=== PATIENT | male | born 1960 | race Caucasian/White ===

== ENCOUNTER → 2016-11-22 | Outpatient (CLI) | payer OTHER ==
[2015-10-27 11:31] VITALS: BP 148/82
[~2016-11-22] MED LIST: CYCL5TAB PO; HYDR2TAB13 PO; OXYC-250 PO; OXYC-323 PO; SERT100T PO
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
== END | disposition home or self-care (01) ==
LOC: RAD 09:16
PROVIDERS: ATTEND Family Medicine
DX: M54.41 Lumbago with sciatica, right side (principal)
CPT/HCPCS: 72100

== ENCOUNTER → 2016-11-29 | Outpatient (CLI) | payer OTHER ==
[2015-10-27 11:31] VITALS: BP 148/82
--- NOTE | 2016-11-29 11:45 | RAD ---
PROCEDURE MRI lumbar spine without contrast HISTORY Chronic low back pain with worsening right foot heaviness and numbness, previous lumbar fusion TECHNIQUE Multiplanar, multi sequential non contrast MR imaging was performed of the lumbar spine. COMPARISON June 23, 2006 FINDINGS As seen previously, there has been posterolateral fusion at L5-S1 at which there are bilateral pedicle screws stabilizing vertical rods, also horizontal bar at this level. There is also interbody cage at L5-S1. Exam does not accurately evaluate integrity of hardware. There has been progression of moderate to severe degenerative disc disease at L2-3. Lumbar vertebral body stature is unchanged. There is inferior L1 Schmorl's node. There is negligible posterior subluxation L2 relative to L3, also negligible anterior spondylolisthesis at L4-5. Conus terminates normally T12-L1. There is no significant marrow edema. There is mild S-shaped scoliosis of the lumbar spine. L2-3: There is negligible disc osteophyte complex. Neural foramina and spinal canal are adequate. There is mild facet degenerative change. L3-4: There is negligible disc osteophyte complex, superimposed very shallow bulge/protrusion in the inferior left neural foramen and proximal left extraforaminal region with associated annular tear new since previous exam. Neural foramina are overall adequate. There is no significant displacement of the extraforaminal left L3 nerve root. Spinal canal is overall adequate. There is mild facet degenerative change and buckling of the ligamentum flavum. L4-5: There is mild facet hypertrophic change and minimal buckling of the ligamentum flavum. There is negligible bulge. Better seen on the sagittal T1 weighted images, there is signal abnormality extending above the intervertebral disc space in the right neural foramen and proximal extraforaminal region estimated at 0.6 cm cc by 0.7 cm AP by approximately 1.4 cm transverse. There is contact of the exiting right L4 nerve root in the right neural foramen and proximal extraforaminal region, overall moderate narrowing of the right neural foramina. Left neural foramen is adequate. There is increased mild to moderate left and mild right lateral recess stenosis. L5-S1: There again has been posterior decompression. Spinal canal and neural foramina are adequate. IMPRESSION 1. As seen previously, there has been posterolateral fusion and posterior decompression at L5-S1. 2. There is increased mild to moderate left and mild right lateral recess stenosis at L4-5, negligible anterior spondylolisthesis now at this level. There is also new signal abnormality in the anterior, inferior right L4-5 neural foramen and proximal extraforaminal region most compatible with extrusion which contacts the exiting right L4 nerve root. 3. There has been progression of degenerative disc disease at L2-3. Electronically signed by: Jae Ocampo MD (Nov 29, 2016 11:43:37)
== END | disposition home or self-care (01) ==
LOC: MRI 09:45
PROVIDERS: ATTEND Family Medicine
DX: M54.41 Lumbago with sciatica, right side (principal)
CPT/HCPCS: 72148

== ENCOUNTER → 2016-12-28 | Outpatient (CLI) | payer OTHER ==
[2015-10-27 11:31] VITALS: BP 148/82
[~2016-12-28] MED LIST changes: +DOCU-27 PO; +FAMO20TA5 PO; +HYDR-965 PO; +LISI10TA2 PO; +METH-38 PO
[2016-12-28 12:35] LABS: ALBUMIN 3.7 g/dL (3.4-5.0); ALBUMIN/GLOBULIN RATIO 1.1 (1.0-1.7); CALCIUM 9.1 mg/dL (8.5-10.1); CREATININE 1.1 mg/dL (0.7-1.3); TOTAL BILIRUBIN 0.5 mg/dL (0.2-1.0); TOTAL PROTEIN 7.1 g/dL (6.4-8.2)
[2016-12-28 12:49] LABS: BASO # 0.1 x10^3/uL (0.0-0.2); BASO % 1 % (0-3); EOS % 3 % (0-3); HEMATOCRIT 46.6 % (39.0-53.0); LYMPH % 26 % (24-48); MEAN CORPUSCULAR HEMOGLOBIN 33 pg (25-35); MEAN CORPUSCULAR HGB CONC 34 g/dL (31-37); MEAN CORPUSCULAR VOLUME 97 fL (79-100); MONO % 8 % (0-9); NEUT % 63 % (31-73); PLATELET COUNT 174 x10^3/uL (140-400); RED BLOOD COUNT 4.81 x10^6/uL (4.30-5.70); RED CELL DISTRIBUTION WIDTH 13.3 % (11.5-14.5); WHITE BLOOD COUNT 7.8 x10^3/uL (4.0-11.0)
--- NOTE | 2016-12-28 12:53 | EKG ---
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
--- NOTE | 2016-12-30 10:57 | HP ---
ADMIT DATE: 01/04/2017 DATE OF SURGERY: 01/04/2017. HISTORY OF PRESENT ILLNESS: The patient is a pleasant 56-year-old who is having difficulty with low back pain and pain which radiates into his posterior lateral thighs and legs. The right side is more involved than the left. He notes weakness of his right foot and says he stumbles and trips. He says that he walks any distances with flip-flops. The problem started about 4 weeks ago. He rates his pain as 5/10. Walking virtually any distance is associated with worsening of this problem. Many years ago, he underwent an instrumented lumbar fusion and decompression at L5-S1. He did well following fusion operation. PAST MEDICAL HISTORY: Arthritis, headaches, and shingles. PAST SURGICAL HISTORY: Colostomy in 1973, lumbar surgery in 2000, right knee 2001, and left shoulder surgery in 2015. FAMILY HISTORY: Noncontributory. SOCIAL HISTORY: Retired. . Denies substance abuse. Denies tobacco use. Drinks 1-2 alcoholic beverages per week. Drinks coffee, tea, and soda. ALLERGIES: No known drug allergies. CURRENT MEDICATIONS: Sertraline, lisinopril, and tizanidine. REVIEW OF SYSTEMS: A 12-point review of systems was obtained and is noncontributory except for that mentioned above. PHYSICAL EXAMINATION: NEUROSURGERY EXAMINATION: GENERAL APPEARANCE: Alert, pleasant, in no acute distress. HEAD: Normocephalic and atraumatic. SKIN: Warm and dry. MUSCULOSKELETAL: Lumbar paraspinal muscle bulk is normal, restricted range of motion of lumbar spine, [id number] tenderness of lower lumbar spine with palpation, normal range of motion of the lower extremities bilaterally. EXTREMITIES: No clubbing, cyanosis, or edema. NEUROLOGIC: Alert and oriented x 3, normal recent and remote memory, strength 5/5 in bilateral lower extremities, except for 4/5 right EHL and right foot dorsiflexion, sensory was intact to light touch in bilateral lower extremities except for decrease in the dorsum of his right foot, reflexes were present and symmetric in the lower extremities bilaterally, straight leg raising is positive on the right, negative straight leg raising on the left, antalgic gait. IMAGING REVIEWED: I reviewed a lumbar MRI scan. The L5-S1 instrumented fusion is well seen. At L4-L5 on the right, there is a superior lateral disk herniation which narrows the foramen and compresses the existing root. ASSESSMENT: 1. Intervertebral disk disorders with radiculopathy, lumbar region. 2. Footdrop, right foot. PLAN: The patient has a focal disk herniation above his previous fusion at L4-L5 on the right with significant right footdrop from which he is stumbling and falling. I have recommended lumbar microsurgery for this. In order to gain access to this region, I will have to remove the hardware at L5-S1 on the right. I discussed this with him. I explained surgery and the risks involved. He understands. He would like to go ahead. We will make the arrangements. JERRY PEDROZA MD DR: SCOTT/rashid JOB#: [id number] / [id number]
== END | disposition home or self-care (01) ==
LOC: SURGPAT 11:49
PROVIDERS: ATTEND Neurological Surgery
DX: M51.27 Other intervertebral disc displacement, lumbosacral region (principal)
CPT/HCPCS: 36415; 80053; 85027; 87641; 93005

== ENCOUNTER → 2017-01-04 | Day surgery (SDC) | payer OTHER ==
[~2017-01-04] VITALS: Ht 175.3 cm; Wt 79.8 kg
[~2017-01-04] MED LIST changes: +BACITRACIN 50,000 UNIT in IV NORMAL SALINE 1000ML BAG 1,000 ML IRR ONE; +BUPIVAC MPF-EPI 0.5%-1:200000 30 ML VIAL. ONE; +GELATIN SPONGE SIZE 100. ONE; +GLYCOPYRROLATE 1 MG/5 ML VIAL. ONE; +HYDROcodone/APAP 7.5/325MG 1 TAB TABLET ONE; +HYDROcodone/APAP 7.5/325MG 1 TAB TABLET PO PRN; +HYDROmorphone 2 MG/ML VIAL IV PRN; +IV RINGERS,LACTATED 1000ML 1,000 ML IV SCH; +KETOROLAC 60 MG/2 ML INJ FOR OR. ONE; +LIDOCAINE 1% 1 ML SYRINGE. ID PRN; +LIDOCAINE 2% 100 MG/5 ML SYRINGE. ONE; +MIDAZOLAM HCL/PF 2 MG/2 ML VIAL. ONE; +MINERAL OIL/PETROLATUM,WHITE OPHTH OINT 3.5GM TUBE. ONE; +MORPHINE SULFATE 2 MG/ML DISP.SYRIN. IV PRN; +NEOSTIGMINE METHYLSULFATE 5 MG/5 ML SYRINGE. ONE; +ONDANSETRON PF 4 MG/2 ML VIAL. IV PRN; +PHENYLEPHRINE in 0.9% NACL PF 1 MG/10 ML DISP.SYRIN. IV ONE; +PROCHLORPERAZINE 10 MG/2 ML VIAL. IV PRN; +PROPOFOL 20 ML IV ONE; +PROPOFOL 50 ML IV ONE; +REMIFENTANIL 2 MG VIAL. IV ONE; +ROCURONIUM 50 MG/5 ML VIAL. ONE; +SEVOFLURANE > 120 MINUTES. IH ONE; +THROMBIN TOPICAL 20,000 UNIT SPRAY.SYRN KIT TP ONE; +ePHEDrine PF IN SALINE 50 MG/5 ML DISP.SYRIN IV ONE; +fentaNYL PF VIAL 100 MCG/2 ML VIAL IV PRN; +fentaNYL PF VIAL 250 MCG/5 ML VIAL ONE
--- NOTE | 2017-01-04 07:47 | HP ---
ADMIT DATE: 01/04/2017 DATE OF SURGERY: 01/04/2017. HISTORY OF PRESENT ILLNESS: The patient is a pleasant 56-year-old who is having difficulty with low back pain and pain which radiates into his posterior lateral thighs and legs. The right side is more involved than the left. He notes weakness of his right foot and says he stumbles and trips. He says that he walks any distances with flip-flops. The problem started about 4 weeks ago. He rates his pain as 5/10. Walking virtually any distance is associated with worsening of this problem. Many years ago, he underwent an instrumented lumbar fusion and decompression at L5-S1. He did well following fusion operation. PAST MEDICAL HISTORY: Arthritis, headaches, and shingles. PAST SURGICAL HISTORY: Colostomy in 1973, lumbar surgery in 2000, right knee 2001, and left shoulder surgery in 2015. FAMILY HISTORY: Noncontributory. SOCIAL HISTORY: Retired. . Denies substance abuse. Denies tobacco use. Drinks 1-2 alcoholic beverages per week. Drinks coffee, tea, and soda. ALLERGIES: No known drug allergies. CURRENT MEDICATIONS: Sertraline, lisinopril, and tizanidine. REVIEW OF SYSTEMS: A 12-point review of systems was obtained and is noncontributory except for that mentioned above. PHYSICAL EXAMINATION: NEUROSURGERY EXAMINATION: GENERAL APPEARANCE: Alert, pleasant, in no acute distress. HEAD: Normocephalic and atraumatic. SKIN: Warm and dry. MUSCULOSKELETAL: Lumbar paraspinal muscle bulk is normal, restricted range of motion of lumbar spine, [id number] tenderness of lower lumbar spine with palpation, normal range of motion of the lower extremities bilaterally. EXTREMITIES: No clubbing, cyanosis, or edema. NEUROLOGIC: Alert and oriented x 3, normal recent and remote memory, strength 5/5 in bilateral lower extremities, except for 4/5 right EHL and right foot dorsiflexion, sensory was intact to light touch in bilateral lower extremities except for decrease in the dorsum of his right foot, reflexes were present and symmetric in the lower extremities bilaterally, straight leg raising is positive on the right, negative straight leg raising on the left, antalgic gait. IMAGING REVIEWED: I reviewed a lumbar MRI scan. The L5-S1 instrumented fusion is well seen. At L4-L5 on the right, there is a superior lateral disk herniation which narrows the foramen and compresses the existing root. ASSESSMENT: 1. Intervertebral disk disorders with radiculopathy, lumbar region. 2. Footdrop, right foot. PLAN: The patient has a focal disk herniation above his previous fusion at L4-L5 on the right with significant right footdrop from which he is stumbling and falling. I have recommended lumbar microsurgery for this. In order to gain access to this region, I will have to remove the hardware at L5-S1 on the right. I discussed this with him. I explained surgery and the risks involved. He understands. He would like to go ahead. We will make the arrangements. JERRY PEDROZA MD DR: SCOTT/rashid JOB#: [id number] / [id number]
[2017-01-04] MEDS: fentaNYL PF VIAL 100 MCG/2 ML VIAL IV PRN ×2 (11:42→12:10)
--- NOTE | 2017-01-04 11:55 | DISCH ---
DISCHARGE INSTRUCTIONS Condition on Discharge Condition on Discharge: Stable Activity After Discharge Activity Instructions for Disc: Activity as tolerated, Avoid exertion Other activity instructions: no driving for a week Bathing Instructions: Shower-keep dressing dry Lifting Instructions after Dis: No heavy lifting, No pulling or pushing, Do not lift >10 pounds Diet after Discharge Additional Diet Restrictions: resume home diet Wound Incision Care Wound/Incision Care: Ice to area for comfort Other wound/incision instructi: may remove dressing in 48 hrs if dry then may shower- no soaking Contacting the after DC Call your doctor for: Concerns you may have Follow-Up Follow up with: Dr. Pedroza's nurse [phone] JERRY PEDROZA MD January 04, 2017 11:55
[2017-01-04 13:20] VITALS: BP 124/70
--- NOTE | 2017-01-04 16:54 | OP ---
DATE OF SURGERY: 01/04/2017 PREOPERATIVE DIAGNOSES: Herniated lumbar disk, right L4-L5 with right lumbar radiculopathy. POSTOPERATIVE DIAGNOSES: Herniated lumbar disk, right L4-L5 with right lumbar radiculopathy. OPERATIONS PERFORMED: Hemilaminotomy and microdiskectomy, right L4-L5. The operation was done with EMG monitoring, fluoroscopy, and microscopic dissection. CYCLE ANALYST: Bryan Cantu M.D., assisted with the surgery, assisted with the exposure, and microdiskectomy as well as the closure. OPERATIVE INDICATIONS: The patient is a very pleasant 56-year-old man who developed intractable lower back pain along with pain which radiated into his right buttock and posterolateral thigh. He failed conservative measures and imaging studies. He has had a previous fusion at L5-S1 and above this on the right side, there was a small superior disk fragment plus lateral recess stenosis and I recommended lumbar microsurgery. I spoke with him about the surgery and the risks, technique and the expected postoperative course. He understood and wished to go ahead. DESCRIPTION OF PROCEDURE: Following general endotracheal anesthesia, the patient was positioned prone on the Acromed spine board. His lumbar region was prepped and draped in the standard fashion. EARNEST hose and AV impulse boots were applied for DVT prophylaxis. A microscope was draped. Fluoroscopy was draped and brought into field. Monitoring was established. Ancef 2 gram was given less than 1 hour prior to the initiation of the surgery. Using fluoroscopic guidance, incision was made over the L4-L5 interspace. I dissected down through the skin and subcutaneous tissue and reflected the paraspinal muscles to the right and dissected the superior aspect of the previous hardware and was quite concerned that I would have to remove hardware in order to gain access to L4-L5 on the right. I was able to place my retractors satisfactorily without removing the hardware and I brought in the microscope during this time and then using the high speed air drill, I burred down a generous hemilaminotomy. I trimmed away thickened ligamentum flavum, went superiorly and laterally and I performed a partial foraminotomy and I exposed area very well. The nerve was compressed from hypertrophic bone and ligament posterolaterally and bulging disk with some superior bulge and fragments beneath the root. I gently retracted the root medially and incised the ligament and the annulus and I teased back and removed disk material and then, performed a diskectomy with pituitary rongeurs. As I worked, the region became very well decompressed. I irrigated with antibiotic solution and obtained hemostasis during this time along with the bone wax at the end of the bony interspace for any bone bleeding. I explored carefully, the root was very free. initiation of the operation, there was significant tension across the root. I did perform partial foraminotomy. I gently removed the retractor and let the muscle fall back and then obtained hemostasis in the muscle and irrigated again copiously. I closed the fascia with absorbable sutures. The subcutaneous tissue was well with absorbable suture and skin was closed with 4-0 subcuticular stitch. Operation went very well. I was quite pleased with the surgery. JERRY PEDROZA MD DR: SCOTT/rashid JOB#: [id number] / [id number]
--- NOTE | 2017-01-06 12:31 | PATHOLOGY ---
PATHOLOGY REPORT * * * * * * * * FINAL DIAGNOSIS: "Lumbar disc and decompression", removal: - Portions of fibrocartilage with degenerative changes. - Fragments of unremarkable bone. REPORT ELECTRONICALLY SIGNED BY: Lucio Portillo M.D. DATE/TIME: 01/06/2017 12:30 * * * * * * * * GROSS PATHOLOGY: Received in formalin labeled "Andres Moran, lumbar disc and decompression," are several pieces of glistening, fibrous tissue measuring 5.9 x 5.6 x 1.3 cm in aggregate dimensions admixed with possible bone. The tissue is submitted representatively in cassette A1 following decalcification. (KAH; 01/05/2017) INITIAL CPT CODE(S): A; 50869, 08993 Professional services performed by [facility] [address] Technical services performed by [facility] at [address] [place] [address], [place] [address]. SPECIMEN(S) RECEIVED: A.Lumbar disc and decompression CLINICAL HISTORY: Lumbar herniated disc, foot drop PATIENT: ANDRES MORAN Etelvina /AGE: 2 1960 (Age: 56) PATIENT #: [id number] ALT CASE #: SPECIMEN COLLECTION DATE: 01/04/2017 SPECIMEN RECEIVED DATE: 01/04/2017 [facility] - [address] [place] [address] - PHONE: [phone] * * * END OF REPORT * * *
== END | disposition home or self-care (01) ==
LOC: SURG 07:01
PROVIDERS: ATTEND Neurological Surgery
DX: M51.16 Intervertebral disc disorders with radiculopathy, lumbar region (principal); I10 Essential (primary) hypertension; K21.9 Gastro-esophageal reflux disease without esophagitis; F41.9 Anxiety disorder, unspecified; Z72.89 Other problems related to lifestyle; Z86.69 Personal history of other diseases of the nervous system and sense organs
CPT/HCPCS: 63030; 76000; 97162; G8978; G8979; G8980; J0690; J1885; J2250; J2370; J2704; J2710; J3010; J3490; J7030; J7120; 88304; 88311

== ENCOUNTER → 2017-08-03 | Outpatient (CLI) | payer OTHER ==
[2017-01-04 13:20] VITALS: BP 124/70
[~2017-08-03] MED LIST changes: -BACITRACIN 50,000 UNIT in IV NORMAL SALINE 1000ML BAG 1,000 ML IRR ONE; -BUPIVAC MPF-EPI 0.5%-1:200000 30 ML VIAL. ONE; +DOCU-109 PO; -DOCU-27 PO; -GELATIN SPONGE SIZE 100. ONE; -GLYCOPYRROLATE 1 MG/5 ML VIAL. ONE; -HYDR2TAB13 PO; +HYDR2TAB31 PO; -HYDROcodone/APAP 7.5/325MG 1 TAB TABLET ONE; -HYDROcodone/APAP 7.5/325MG 1 TAB TABLET PO PRN; -HYDROmorphone 2 MG/ML VIAL IV PRN; -IV RINGERS,LACTATED 1000ML 1,000 ML IV SCH; -KETOROLAC 60 MG/2 ML INJ FOR OR. ONE; -LIDOCAINE 1% 1 ML SYRINGE. ID PRN; -LIDOCAINE 2% 100 MG/5 ML SYRINGE. ONE; -MIDAZOLAM HCL/PF 2 MG/2 ML VIAL. ONE; -MINERAL OIL/PETROLATUM,WHITE OPHTH OINT 3.5GM TUBE. ONE; -MORPHINE SULFATE 2 MG/ML DISP.SYRIN. IV PRN; -NEOSTIGMINE METHYLSULFATE 5 MG/5 ML SYRINGE. ONE; -ONDANSETRON PF 4 MG/2 ML VIAL. IV PRN; -OXYC-250 PO; +OXYC-328 PO; -PHENYLEPHRINE in 0.9% NACL PF 1 MG/10 ML DISP.SYRIN. IV ONE; -PROCHLORPERAZINE 10 MG/2 ML VIAL. IV PRN; -PROPOFOL 20 ML IV ONE; -PROPOFOL 50 ML IV ONE; -REMIFENTANIL 2 MG VIAL. IV ONE; -ROCURONIUM 50 MG/5 ML VIAL. ONE; -SEVOFLURANE > 120 MINUTES. IH ONE; -THROMBIN TOPICAL 20,000 UNIT SPRAY.SYRN KIT TP ONE; -ePHEDrine PF IN SALINE 50 MG/5 ML DISP.SYRIN IV ONE; -fentaNYL PF VIAL 100 MCG/2 ML VIAL IV PRN; -fentaNYL PF VIAL 250 MCG/5 ML VIAL ONE
--- NOTE | 2017-08-03 15:23 | RAD ---
Five-view C-spine History: Chronic neck pain AP lateral open mouth and bilateral oblique views were obtained There is straightening of the normal cervical lordosis. There is mild degenerative retrolisthesis of C4 on C5 and minimal degenerative anterolisthesis of C3 on C4. There is loss of intervertebral disc height at C4-C5 and C6-C7 with marginal spurring of the endplates. There is moderate narrowing of the C3-C4 and C6-C7 neural foramen on the left and marked narrowing of the C4-C5 neural foramen on the left.. Impression: 1. Straightening of the normal cervical lordosis could be secondary to muscle spasm or could be chronic. 2. Degenerative changes with neural foraminal stenosis on the left.
== END | disposition home or self-care (01) ==
LOC: RAD 10:17
PROVIDERS: ATTEND Physician Assistant
DX: M48.02 Spinal stenosis, cervical region (principal)
CPT/HCPCS: 72050

== ENCOUNTER → 2017-08-22 | Outpatient (CLI) | payer OTHER ==
[2017-01-04 13:20] VITALS: BP 124/70
--- NOTE | 2017-08-22 09:55 | RAD ---
INDICATION: Neck and upper back pain with bilateral arm pain. TECHNIQUE: Sagittal T1, sagittal T2, sagittal STIR, axial T2, and axial T2 gradient sequences are provided. No comparison is available. FINDINGS: There is 3 mm of retrolisthesis at C4-C5. There is otherwise no malalignment. There is no worrisome marrow lesion. There is no marrow edema. There is no cord signal abnormality. The cervicomedullary junction is unremarkable. Degenerative findings by individual level are as follows: C2-C3: There is minimal uncinate process spurring and facet hypertrophy, without canal or foraminal compromise. C3-C4: There is uncinate process spurring and facet hypertrophy. There is mild left foraminal narrowing. C4-C5: In addition to the retrolisthesis there is a disc osteophyte complex and uncinate process spurring. There is buckling of ligamentum flavum. There is effacement of the ventral CSF column. Osteophyte complex contacts the cord. There is no canal stenosis, midline AP diameter of the thecal sac is still 11-12 mm. There is foraminal narrowing bilaterally, likely moderate on the left and [id number] on the right. C5-C6: There is a disc osteophyte complex and facet hypertrophy with mild bilateral foraminal narrowing. Midline AP diameter of the thecal sac is 11 mm. C6-C7: There is a disc osteophyte complex and uncinate process spurring. There is moderate left and mild right foraminal narrowing. Midline AP diameter of the thecal sac is still 11 mm. C7-T1: There is facet hypertrophy. There may be a right paracentral/foraminal herniation. There is no high-grade canal or foraminal compromise. IMPRESSION: Degenerative changes in the cervical spine are greatest at C4-C5. Electronically signed by: Evelio Culp MD (08/22/2017 9:52 AM) [email or web address]
--- NOTE | 2017-08-22 10:06 | RAD ---
INDICATION: Upper back pain and bilateral arm pain. TECHNIQUE: Sagittal T1, sagittal T2, sagittal STIR, axial T1, and axial T2 sequences are provided. No comparison is available. FINDINGS: There is no malalignment. There is no marrow edema. There is no worrisome marrow lesion. There is no cord signal abnormality. Degenerative findings by individual level are as follows: T3-T4: There is a disc osteophyte complex without canal or foraminal compromise. T4-T5: There is a left paracentral protrusion or spur without canal or foraminal compromise. T5-T6: There is a left paracentral protrusion or spur without canal or foraminal compromise. T9-T10: There is facet hypertrophy without canal or foraminal compromise. T10-T11: There is a minimal disc bulge and mild facet hypertrophy without canal stenosis. There is minimal foraminal narrowing. T11-T12: Disc bulge and facet hypertrophy are noted without canal or foraminal compromise. IMPRESSION: 1. Negative for compression fracture. 2. Mild degenerative disc disease and facet hypertrophy throughout the thoracic spine. No high-grade canal stenosis is apparent. Minimal foraminal narrowing is noted at T10-T11. Electronically signed by: Evelio Culp MD (08/22/2017 10:02 AM) [email or web address]
== END | disposition home or self-care (01) ==
LOC: MRI 10:15
PROVIDERS: ATTEND Physician Assistant
DX: M47.892 Other spondylosis, cervical region (principal); M51.14 Intervertebral disc disorders with radiculopathy, thoracic region
CPT/HCPCS: 72141; 72146

== ENCOUNTER → 2017-09-04 | Outpatient (CLI) | payer OTHER ==
[~2017-09-04] MED LIST changes: -CYCL5TAB PO; -DOCU-109 PO; -FAMO20TA5 PO; -HYDR-965 PO; -HYDR2TAB31 PO; +IOHEXOL 180 MG/ML 10 ML VIAL.; -LISI10TA2 PO; -METH-38 PO; -OXYC-323 PO; -OXYC-328 PO; -SERT100T PO; +methylPREDNISolone ACETATE 40 MG/ML VIAL.; +methylPREDNISolone ACETATE 80 MG/ML VIAL.
== END | disposition home or self-care (01) ==
LOC: PNCL 12:56
DX: M50.321 Other cervical disc degeneration at C4-C5 level (principal); M54.12 Radiculopathy, cervical region; I10 Essential (primary) hypertension; M19.90 Unspecified osteoarthritis, unspecified site; K21.9 Gastro-esophageal reflux disease without esophagitis; Z98.890 Other specified postprocedural states; Z79.899 Other long term (current) drug therapy
CPT/HCPCS: 62321; J1030; J1040

== ENCOUNTER → 2017-09-18 | Outpatient (CLI) | payer OTHER | END | disposition home or self-care (01) | LOC: PNCL 12:54 | DX: M50.123 Cervical disc disorder at C6-C7 level with radiculopathy (principal); I10 Essential (primary) hypertension; K21.9 Gastro-esophageal reflux disease without esophagitis; F41.9 Anxiety disorder, unspecified; F17.200 Nicotine dependence, unspecified, uncomplicated; Z86.69 Personal history of other diseases of the nervous system and sense organs; Z72.89 Other problems related to lifestyle; Z87.39 Personal history of other diseases of the musculoskeletal system and connective tissue | CPT/HCPCS: 62321; J1030; J1040 ==

== ENCOUNTER → 2017-10-09 | Outpatient (CLI) | payer OTHER | END | disposition home or self-care (01) | LOC: PNCL 12:51 | DX: M50.123 Cervical disc disorder at C6-C7 level with radiculopathy (principal); I10 Essential (primary) hypertension; F41.9 Anxiety disorder, unspecified; F17.200 Nicotine dependence, unspecified, uncomplicated; Z87.39 Personal history of other diseases of the musculoskeletal system and connective tissue; Z86.69 Personal history of other diseases of the nervous system and sense organs; Z72.89 Other problems related to lifestyle | CPT/HCPCS: 62321; J1030; J1040; Q9965 ==

== ENCOUNTER → 2017-10-27 | Outpatient (CLI) | payer OTHER ==
[2017-10-27 13:08] LABS: ADD MAN DIFF? NO
[2017-10-27 13:11] LABS: BASO # 0.1 x10^3/uL (0.0-0.2); BASO % 1 % (0-3); EOS # 0.1 x10^3/uL (0.0-0.7); EOS % 1 % (0-3); HEMATOCRIT 44.4 % (39.0-53.0); HEMOGLOBIN 15.6 g/dL (13.0-17.5); LYMPH # 2.1 x10^3/uL (1.0-4.8); LYMPH % 27 % (24-48); MEAN CORPUSCULAR HEMOGLOBIN 35 pg (25-35); MEAN CORPUSCULAR HGB CONC 35 g/dL (31-37); MEAN CORPUSCULAR VOLUME 99 fL (79-100); MONO # 0.7 x10^3/uL (0.0-1.1); MONO % 9 % (0-9); NEUT # 4.6 x10^3uL (1.8-7.7); NEUT % 62 % (31-73); PLATELET COUNT 172 x10^3/uL (140-400); RED BLOOD COUNT 4.51 x10^6/uL (4.30-5.70); RED CELL DISTRIBUTION WIDTH 13.2 % (11.5-14.5); WHITE BLOOD COUNT 7.5 x10^3/uL (4.0-11.0)
[2017-10-27 13:29] LABS: ALBUMIN 3.7 g/dL (3.4-5.0); ALBUMIN/GLOBULIN RATIO 1.2 (1.0-1.7); ALK PHOS 90 U/L (46-116); ALT (SGPT) 38 U/L (16-63); ANION GAP 8 (6-14); AST (SGOT) 22 U/L (15-37); BLOOD UREA NITROGEN 12 mg/dL (8-26); BUN/CREATININE RATIO 12 (6-20); CALCIUM 9.1 mg/dL (8.5-10.1); CARBON DIOXIDE 27 mmol/L (21-32); CHLORIDE 105 mmol/L (98-107); GFR 76.7; GLUCOSE 131 mg/dL (70-99); SODIUM 140 mmol/L (136-145); TOTAL BILIRUBIN 0.8 mg/dL (0.2-1.0); TOTAL PROTEIN 6.9 g/dL (6.4-8.2)
[2017-10-27 22:16] LABS: MRSA BY PCR Negative (Negative)
== END | disposition home or self-care (01) ==
LOC: SURGPAT 12:09
DX: Z01.818 Encounter for other preprocedural examination (principal); M48.02 Spinal stenosis, cervical region; M50.121 Cervical disc disorder at C4-C5 level with radiculopathy
CPT/HCPCS: 36415; 80053; 85025; 87641

== ENCOUNTER 2017-11-03 07:14 | Observation (INO) | payer OTHER ==
[~2017-11-03 07:14] MED LIST changes: +DEXAMETHASONE SOD PHOS 20 MG/5 ML VIAL.; +HYDROmorphone 2 MG/ML VIAL IV; -IOHEXOL 180 MG/ML 10 ML VIAL.; +LIDOCAINE 1% PF 2 ML VIAL. ID; +LIDOCAINE 2% PF Vial for OR 5 ML VIAL.; +MORPHINE SULFATE 2 MG/ML DISP.SYRIN. IV; +ONDANSETRON PF 4 MG/2 ML VIAL.; +ONDANSETRON PF 4 MG/2 ML VIAL. IV; +PROPOFOL 20 ML IV; +ROCURONIUM 50 MG/5 ML VIAL.; +fentaNYL PF VIAL 100 MCG/2 ML VIAL IV; -methylPREDNISolone ACETATE 40 MG/ML VIAL.; -methylPREDNISolone ACETATE 80 MG/ML VIAL.
[2017-11-03] MEDS: IV RINGERS,LACTATED 1000ML 1,000 ML IV ×2 (07:43→11:39)
[2017-11-03] MEDS ORDERED: PHENYLEPHRINE 10 MG/ML VIAL. (08:10)
[2017-11-03] MEDS ORDERED: REMIFENTANIL 2 MG VIAL. IV (08:10)
[2017-11-03] MEDS ORDERED: PROPOFOL 50 ML IV ×2 (08:11→09:37)
[2017-11-03] MEDS ORDERED: fentaNYL PF VIAL 100 MCG/2 ML VIAL (08:11)
[2017-11-03] MEDS ORDERED: GLYCOPYRROLATE 1 MG/5 ML VIAL. (09:12)
[2017-11-03] MEDS ORDERED: PROPOFOL 20 ML IV (09:33)
[2017-11-03] MEDS ORDERED: NEOSTIGMINE 10 MG/10 ML VIAL. (09:34)
[2017-11-03] MEDS: BUPIVAC MPF-EPI 0.5%-1:200000 30 ML VIAL. INJ (09:42)
[2017-11-03] MEDS: THROMBIN TOPICAL 20,000 UNIT SPRAY.SYRN KIT TP (09:42)
[2017-11-03] MEDS: GELATIN SPONGE SIZE 100. (09:42)
[2017-11-03] MEDS: BACITRACIN 50,000 UNIT in IV NORMAL SALINE 1000ML BAG 1,000 ML IRR (09:42)
[2017-11-03] MEDS ORDERED: SEVOFLURANE > 120 MINUTES. IH (11:07)
[2017-11-03] MEDS ORDERED: MAG HYDROX/ALUMINUM HYD/SIMETH 30 ML ORAL.SUSP PO (11:15)
[2017-11-03] MEDS ORDERED: diphenhydrAMINE HCL 25 MG CAPSULE PO (11:15)
[2017-11-03] MEDS ORDERED: MAGNESIUM HYDROXIDE 2,400 MG/30 ML ORAL.SUSP. PO (11:15)
[2017-11-03] MEDS ORDERED: ZOLPIDEM 5 MG TABLET. PO (11:15)
[2017-11-03] MEDS ORDERED: CALCIUM CARBONATE 500 MG TAB.CHEW PO (11:15)
[2017-11-03] MEDS ORDERED: fentaNYL PF VIAL 100 MCG/2 ML VIAL IV ×2 (11:15)
[2017-11-03] MEDS ORDERED: ONDANSETRON PF 4 MG/2 ML VIAL. IV (11:15)
[2017-11-03] MEDS ORDERED: ACETAMINOPHEN 325 MG TABLET. PO (11:15)
[2017-11-03] MEDS ORDERED: 0.9 % SODIUM CHLORIDE 10 ML DISP.SYRIN. IV (11:15)
[2017-11-03] MEDS ORDERED: diphenhydrAMINE 50 MG/ML VIAL IV (11:15)
[2017-11-03] MEDS: fentaNYL PF VIAL 100 MCG/2 ML VIAL IV ×4 (11:40→12:36)
[2017-11-03] MEDS: PROCHLORPERAZINE 10 MG/2 ML VIAL. IV ×2 (11:40→12:04)
[2017-11-03] MEDS: POTASSIUM CL 20MEQ D5-0.45NACL 1,000 ML IV (12:00)
[2017-11-03] MEDS ORDERED: ceFAZolin 2GM PREMIX 2 GM/50 ML BAG IV (12:00)
[2017-11-03] MEDS ORDERED: ceFAZolin SODIUM 1 GM in IV DEXTROSE 5% 50 ML IV (14:00)
[2017-11-03] MEDS: METHOCARBAMOL 750 MG TABLET PO ×2 (14:23→20:54)
[2017-11-03] MEDS: ceFAZolin SODIUM IV Push 1 GM VIAL. IVP (17:02)
[2017-11-03] MEDS: HYDROcodone/APAP 7.5/325MG 1 TAB TABLET PO (18:39)
[2017-11-03] MEDS: DOCUSATE SODIUM 100 MG CAPSULE. PO (20:55)
[2017-11-04] MEDS: ceFAZolin SODIUM IV Push 1 GM VIAL. IVP ×2 (00:25→08:37)
[2017-11-04] MEDS: HYDROcodone/APAP 7.5/325MG 1 TAB TABLET PO ×2 (06:07→11:50)
[2017-11-04] MEDS: CITALOPRAM 20 MG TABLET. PO (08:37)
[2017-11-04] MEDS: DOCUSATE SODIUM 100 MG CAPSULE. PO (08:37)
[2017-11-04] MEDS: METHOCARBAMOL 750 MG TABLET PO ×2 (08:37→12:54)
[2017-11-04] MEDS: FAMOTIDINE 20 MG TABLET. PO (08:37)
[2017-11-04] MEDS: LOSARTAN POTASSIUM 50 MG TABLET. PO (08:40)
== END 2017-11-04 14:10 | disposition home or self-care (01) ==
LOC: SURG 07:14 → 4 NORTH 11:13
DX: M50.121 Cervical disc disorder at C4-C5 level with radiculopathy (principal); M48.02 Spinal stenosis, cervical region; M19.90 Unspecified osteoarthritis, unspecified site; G43.909 Migraine, unspecified, not intractable, without status migrainosus; Z93.3 Colostomy status
CPT/HCPCS: 20931; 76000; 88304; 96374; 96376; 97162-GP; 97530-GP; C1713; G0378; G0379; G8979-CI-GP; G8980-CI-GP; J0690; J0780; J1100; J2405; J2704; J2710; J3010; J3490; J7030; J7120

== ENCOUNTER → 2018-02-05 | Outpatient (CLI) | payer OTHER | END | disposition home or self-care (01) | LOC: RAD 08:42 | DX: M48.02 Spinal stenosis, cervical region (principal); M12.88 Other specific arthropathies, not elsewhere classified, other specified site; Z98.890 Other specified postprocedural states | CPT/HCPCS: 72040 ==

== ENCOUNTER → 2018-03-28 | Outpatient (CLI) | payer OTHER ==
[2018-03-28] MEDS: GADOBUTROL 7.5 MMOL/7.5 ML VIAL IV (15:30)
== END | disposition home or self-care (01) ==
LOC: KCIC MRI 14:12
DX: M48.061 Spinal stenosis, lumbar region without neurogenic claudication (principal); M51.16 Intervertebral disc disorders with radiculopathy, lumbar region; M12.88 Other specific arthropathies, not elsewhere classified, other specified site; M41.86 Other forms of scoliosis, lumbar region; M43.27 Fusion of spine, lumbosacral region; I10 Essential (primary) hypertension; Z87.891 Personal history of nicotine dependence
CPT/HCPCS: 72158; A9585

== ENCOUNTER → 2018-04-16 | Outpatient (CLI) | payer OTHER ==
[2017-11-04 11:00] VITALS: BP 111/50
[~2018-04-16] MED LIST changes: +ACET500T68 PO; +CYCL5TAB PO; -DEXAMETHASONE SOD PHOS 20 MG/5 ML VIAL.; +DOCU-109 PO; +ESCITALOPRAM OX10 MG PO; +FAMO-63 PO; +FAMO20TA5 PO; +FLUO10CA13 PO; +HYDR-2762 PO; +HYDR-965 PO; +HYDR2TAB31 PO; -HYDROmorphone 2 MG/ML VIAL IV; -LIDOCAINE 1% PF 2 ML VIAL. ID; -LIDOCAINE 2% PF Vial for OR 5 ML VIAL.; +LISI10TA2 PO; +LOSA50TA6 PO; +METH-37 PO; +METH-38 PO; +METH750T2 PO; -MORPHINE SULFATE 2 MG/ML DISP.SYRIN. IV; +NAPR220C4 PO; -ONDANSETRON PF 4 MG/2 ML VIAL.; -ONDANSETRON PF 4 MG/2 ML VIAL. IV; +OXYC-323 PO; +OXYC-328 PO; +OXYC1TAB7 PO; -PROPOFOL 20 ML IV; -ROCURONIUM 50 MG/5 ML VIAL.; +SERT100T PO; -fentaNYL PF VIAL 100 MCG/2 ML VIAL IV
--- NOTE | 2018-04-16 10:59 | EKG ---
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
[2018-04-16 11:10] LABS: BASO # 0.1 x10^3/uL (0.0-0.2); BASO % 1 % (0-3); EOS # 0.2 x10^3/uL (0.0-0.7); EOS % 3 % (0-3); HEMATOCRIT 44.9 % (39.0-53.0); HEMOGLOBIN 15.9 g/dL (13.0-17.5); LYMPH # 2.4 x10^3/uL (1.0-4.8); LYMPH % 32 % (24-48); MEAN CORPUSCULAR HEMOGLOBIN 35 pg (25-35); MEAN CORPUSCULAR HGB CONC 35 g/dL (31-37); MEAN CORPUSCULAR VOLUME 97 fL (79-100); MONO # 0.6 x10^3/uL (0.0-1.1); MONO % 9 % (0-9); NEUT # 4.1 x10^3uL (1.8-7.7); NEUT % 55 % (31-73); PLATELET COUNT 173 x10^3/uL (140-400); RED BLOOD COUNT 4.61 x10^6/uL (4.30-5.70); RED CELL DISTRIBUTION WIDTH 12.8 % (11.5-14.5); WHITE BLOOD COUNT 7.4 x10^3/uL (4.0-11.0)
[2018-04-16 11:14] LABS: PROTHROMBIN TIME PATIENT 12.6 SEC (11.7-14.0)
[2018-04-16 11:19] LABS: ALBUMIN 3.8 g/dL (3.4-5.0); ALBUMIN/GLOBULIN RATIO 1.2 (1.0-1.7); CALCIUM 9.2 mg/dL (8.5-10.1); CREATININE 1.1 mg/dL (0.7-1.3); GFR 68.8; POTASSIUM 4.2 mmol/L (3.5-5.1); TOTAL BILIRUBIN 0.8 mg/dL (0.2-1.0); TOTAL PROTEIN 6.9 g/dL (6.4-8.2)
== END | disposition home or self-care (01) ==
LOC: SURGPAT 10:05
PROVIDERS: ATTEND Neurological Surgery
DX: Z01.818 Encounter for other preprocedural examination (principal); M51.16 Intervertebral disc disorders with radiculopathy, lumbar region; I10 Essential (primary) hypertension; Z87.891 Personal history of nicotine dependence; Z87.39 Personal history of other diseases of the musculoskeletal system and connective tissue; Z79.899 Other long term (current) drug therapy; Z98.1 Arthrodesis status
CPT/HCPCS: 36415; 80053; 85025; 85610; 85730; 87641; 93005

== ENCOUNTER 2018-04-19 07:52 | Observation (INO) | payer OTHER ==
--- NOTE | 2018-04-18 12:58 | PREOP HP ---
DATE OF SERVICE: 04/19/2018 HISTORY OF PRESENT ILLNESS: The patient was seen today in the office. In 2000, he underwent an instrumented lumbar fusion and decompression at L5-S1 and did well from that. In 2016, he had problems with herniated disc at L4-L5 on the right and underwent lumbar microsurgery at that level. He did well from that operation. He said that even though he improved with regard to his severe leg pain, he does have some residual back pain over the last few months and the right leg pain has returned and become quite severe. He notes pain in the right buttock and hip, which radiates into the right lateral and anterior lateral thigh, stopping normally at the knee. His knee is painful for him also. Standing and walking increases pain. He says his pain is constant and he has difficulty finding relief. He is taking [place] and Robaxin. He developed problems with cervical radiculopathy, stenosis and in 10/2016 underwent an anterior cervical discectomy and fusion at C4-C5. He did well from that operation with resolution of his arm pain. He says that he is having problems with increased headache. He feels as though his headaches are disabling due to the stress incurred by the pain in his lower back and right leg. He rates his pain at rest as a 5/10. He has recently finished a Medrol Dosepak and said it did give him some temporary help. He underwent a new lumbar MRI scan on 03/28/2018. PAST MEDICAL HISTORY: Arthritis, headaches with migraines, shingles. PAST SURGICAL HISTORY: Colostomy in 1973, lumbar surgery in 2000, right knee 2001, left shoulder surgery 2017, lumbar micro disk decompression L4-L5 on the right with removal of hardware at L5-S1 in 12/2016, and ACDF at C4-C5 in 10/2017. SOCIAL HISTORY: Retired. . Denies substance abuse. Denies tobacco use. Drinks 1-2 alcoholic drinks per week. Drinks coffee, tea and soda. ALLERGIES: No known drug allergies. CURRENT MEDICATIONS: Citalopram, losartan, Tylenol and Aleve. REVIEW OF SYSTEMS: A 12-point review of systems was obtained and is noncontributory except for that mentioned above. PHYSICAL EXAMINATION: NEUROSURGERY EXAMINATION: GENERAL APPEARANCE: Alert, pleasant, no acute distress. HEAD: Normocephalic and atraumatic. SKIN: Warm and dry. Well-healed lumbar incision. MUSCULOSKELETAL: Lumbar paraspinal muscle bulk is normal, restricted range of motion of the lumbar spine, moderately severe tenderness over the right lower lumbar spine with palpation, normal range of motion of the lower extremities bilaterally. EXTREMITIES: No clubbing, cyanosis or edema. NEUROLOGIC: Alert and oriented x 3, normal recent and remote memory. Strength 5/5 in bilateral lower extremities, sensory is intact to light touch in the lower extremities bilaterally except for a diminution in light touch involving the lateral right thigh, reflexes were present and symmetric in bilateral lower extremities, positive straight leg raising on the right at 30 degrees with back, right hip and right lateral thigh pain relieved by Lasegue maneuver, negative straight leg raising on the left. IMAGING: I reviewed his recent lumbar MRI scan. The instrumented fusion of L5-S1 is well seen. There are postoperative changes seen at L4-L5 on the right. There is a moderately large recurrent disc in the right lateral recess at L4-L5 compressing the right L5 root. ASSESSMENT/ PLAN: He has significant lumbar radiculopathy, which is disabling for him. On imaging studies there was a large recurrent disc at L4-L5 on the right with nerve root compression. This is a previously operated level from 2017. At this point, my recommendation is that he undergo further surgery to remove the herniated disc recurrence. Because this is a recurrent herniation above an instrumented fusion, he will require removal of instrumentation at L5-S1 in order to gain access to L4-L5. Following his wide exposure and discectomy at this level, I would place hardware from L4 to the sacrum and combine this with an anterior discectomy and fusion. I discussed this with him in detail. I spoke about the surgery and the risks involved. He understands. He elected to go ahead. We will make the arrangements. JERRY PEDROZA MD DR: SCOTT/rashid JOB#: [id number] / [id number] YESI
[2018-04-19] VITALS (8 sets, daily range): BP systolic 116–141; BP diastolic 70–88
[~2018-04-19] VITALS: Ht 175.3 cm; Wt 84.4 kg
[~2018-04-19 07:52] MED LIST changes: +BACITRACIN 50,000 UNIT in IV NORMAL SALINE 1000ML BAG 1,000 ML IRR ONE; +BUPIVAC MPF-EPI 0.5%-1:200000 30 ML VIAL. INJ ONE; +GELATIN SPONGE SIZE 100. ONE; +IV RINGERS,LACTATED 1000ML 1,000 ML IV SCH; +KETOROLAC 60 MG/2 ML INJ FOR OR. ONE; +LIDOCAINE 1% PF 2 ML VIAL. ID PRN; -LOSA50TA6 PO; +LOSA50TA7 PO; +ONDANSETRON PF 4 MG/2 ML VIAL. IV PRN; -OXYC1TAB7 PO; +THROMBIN TOPICAL 20,000 UNIT SPRAY.SYRN KIT TP ONE; +fentaNYL PF VIAL 100 MCG/2 ML VIAL IV PRN
[2018-04-19] MEDS ORDERED: fentaNYL PF VIAL 100 MCG/2 ML VIAL ONE ×2 (09:11→14:39)
[2018-04-19] MEDS ORDERED: PROPOFOL 20 ML IV ONE (09:11)
[2018-04-19] MEDS ORDERED: PROPOFOL 0 ML IV ONE (09:11)
[2018-04-19] MEDS ORDERED: LIDOCAINE 2% PF Vial for OR 5 ML VIAL. ONE (09:11)
[2018-04-19] MEDS ORDERED: ROCURONIUM 50 MG/5 ML VIAL. ONE (09:11)
[2018-04-19] MEDS ORDERED: SUCCINYLCHOLINE 200 MG/10 ML VIAL. ONE (09:11)
[2018-04-19] MEDS ORDERED: REMIFENTANIL 2 MG VIAL. IV ONE (10:00)
--- NOTE | 2018-04-19 10:02 | RAD ---
CT of the lumbar spine without contrast, 04/19/2018: HISTORY: Back pain disc, protrusion, BrainLab study Multidetector CT imaging was performed with multiplanar reconstructions produced. The data was transferred to the operating room to aid in the patient's stereotactically guided surgery. The following findings are delineated on today's images: 1. There are bilateral pedicle screws attached to posterior fixation rods at L5-S1. There is a radiopaque implant at the L5-S1 disc level with apparent fusion of that disc space. Associated artifacts obscure the underlying spinal canal at this level. 2. At L1-2 there is minimal posterior disc bulging and posterior ligamentous thickening. The central spinal canal and neural foramina are well-maintained. 3. At L2-3 there is disc space narrowing with mild posterior marginal spurring and broad-based disc bulging. The central spinal canal and neural foramina are not significantly stenotic. 4. At L3-4 there is moderate broad-based posterior disc protrusion. There is mild posterior ligamentous thickening related to facet joint arthropathy. The combination of findings is causing mild central spinal stenosis. 5. At L4-5 there has been a right laminectomy. There is a defect in the pars interarticularis on the right. There is moderate facet joint arthropathy with posterior ligamentous thickening. There is moderate posterior disc protrusion most prominent just to the right of midline. There is tissue within the right neural foramen obliterating the perineural fat suggesting an extruded disc fragment versus scarring. PQRS Compliance Statement: One or more of the following individualized dose reduction techniques were utilized for this examination: 1. Automated exposure control 2. Adjustment of the mA and/or kV according to patient size 3. Use of iterative reconstruction technique Electronically signed by: Kishore Cherry MD (04/19/2018 9:59 AM) [facility]
[2018-04-19] MEDS ORDERED: DESFLURANE > 120 MINUTES IH ONE (12:05)
[2018-04-19] MEDS ORDERED: DEXAMETHASONE SOD PHOS 20 MG/5 ML VIAL. ONE (12:05)
[2018-04-19] MEDS ORDERED: ePHEDrine PF IN SALINE 50 MG/5 ML DISP.SYRIN IV ONE (12:11)
[2018-04-19] MEDS ORDERED: PROPOFOL 50 ML IV ONE ×4 (12:51→17:06)
[2018-04-19] MEDS ORDERED: DOCUSATE SODIUM 100 MG CAPSULE. PO PRN (13:00)
[2018-04-19] MEDS ORDERED: oxyCODONE/APAP 5/325 1 TAB TABLET PO PRN (13:00)
[2018-04-19] MEDS ORDERED: ONDANSETRON PF 4 MG/2 ML VIAL. IV PRN (13:00)
[2018-04-19] MEDS ORDERED: 0.9 % SODIUM CHLORIDE 10 ML DISP.SYRIN. IV PRN (13:00)
[2018-04-19] MEDS ORDERED: CALCIUM CARBONATE 500 MG TAB.CHEW PO PRN (13:00)
[2018-04-19] MEDS ORDERED: fentaNYL PF VIAL 100 MCG/2 ML VIAL IV PRN ×2 (13:00)
[2018-04-19] MEDS ORDERED: MAG HYDROX/ALUMINUM HYD/SIMETH 30 ML ORAL.SUSP PO PRN (13:00)
[2018-04-19] MEDS ORDERED: ACETAMINOPHEN 325 MG TABLET. PO PRN (13:00)
[2018-04-19] MEDS ORDERED: diphenhydrAMINE HCL 25 MG CAPSULE PO PRN (13:00)
[2018-04-19] MEDS ORDERED: MAGNESIUM HYDROXIDE 2,400 MG/30 ML ORAL.SUSP. PO PRN (13:00)
[2018-04-19] MEDS ORDERED: diphenhydrAMINE 50 MG/ML VIAL IV PRN (13:00)
[2018-04-19] MEDS ORDERED: ceFAZolin SODIUM 1 GM in IV DEXTROSE 5% 50 ML IV SCH (14:00)
[2018-04-19] MEDS ORDERED: ONDANSETRON PF 4 MG/2 ML VIAL. ONE (14:18)
[2018-04-19] MEDS ORDERED: ceFAZolin SODIUM 1 GM VIAL ONE (16:22)
[2018-04-19] MEDS: fentaNYL PF VIAL 100 MCG/2 ML VIAL IV PRN ×3 (19:01→20:08)
[2018-04-19] MEDS: MORPHINE SULFATE 2 MG/ML VIAL. IV PRN ×3 (19:02→20:11)
[2018-04-19] MEDS ORDERED: MORPHINE SULFATE 4 MG/ML VIAL. IV PRN (19:15)
--- NOTE | 2018-04-19 19:15 | OP ---
DATE OF SURGERY: 04/19/2018 PREOPERATIVE DIAGNOSES: 1. Herniated lumbar disc, L4-L5, right, status post previous lumbar surgery at this level. 2. Previous instrumented fusion at L5-S1. OPERATION PERFORMED: 1. Reoperation, L4-L5 right with a hemilaminotomy and transfacet exposure exposing the right L4 and L5 nerve roots; lumbar microdiscectomy L4-L5, right for recurrent disc herniation. 2. Removal of hardware, L5-S1. 3. Placement of hardware, L4-L5. 4. Posterolateral fusion, L4-L5. 5. Anterior lumbar discectomy L4-5 from a lateral oblique approach with placement of interbody fusion cage and autograft bone fusion. The operation was done with EMG monitoring, fluoroscopy, microscopic dissection and BrainLAB guidance, stimulated EMG monitoring. SURGEON: Simon Pedroza M.D. REFERENCE INVESTIGATOR: ANNELISE Pelletier, assisted with the surgery. She assisted with the anterior discectomy and placement of the hardware and closure. OPERATIVE INDICATIONS: The patient is a very pleasant 57-year-old man who in 2000, underwent decompression and instrumented fusion at L5-S1 and did well. He then developed, in 2017, recurrent disc herniation at L4-L5 in the right and underwent lumbar microsurgery at that level. He did well from that surgery, but then has developed recurrent pain and now has a second recurrence at L4-L5 on the right. The pain has been very severe. He has failed conservative measures and we outlined treatment options. At this point, he strongly would like to go ahead with discectomy and instrumented fusion. I spoke about the surgery and the risks, the technique and the expected operative course. He understands and wished to go ahead. DESCRIPTION OF PROCEDURE: Following general endotracheal anesthesia, the patient was positioned prone on the Sunny table with lumbar regions prepped and draped in standard fashion. EARNEST hose and AV impulse boots were applied for DVT prophylaxis. The microscope was draped. Fluoroscopy was draped and brought into field. Monitoring was established. Ancef 2 grams were given less than 1 hour prior to surgery and repeated at 4-hour intervals. Iliac pins were placed in the left iliac crest and the BrainLAB system was initialized. I then reopened his previous midline incision and reflected the paraspinal muscle, exposed the hardware and removed the hardware on the right side at L5 and S1. On the left side, the L5 screw was removed but the S1 screw was densely adherent to the underlying bone. I removed the post but was unable to remove that screw. I then reflected the paraspinal muscles and placed self-retaining retractors at L4-L5 and using the BrainLAB system, I drilled into the posterior pedicles and cannulated the pedicles at L4 bilaterally without any difficulty in the standard fashion. I did excoriate the transverse processes and lateral facets and aspirated 20 mL of bone marrow. I then put allograft bone into the left lateral gutter first and then placed it on the right side. I then used the Brainlab system to pass the black ball, followed by ball tip probe, followed by tap, followed by bone wax covering the openings at L4 and L5 and I asured myself that I was completely within the the pedicles. At this point, I then brought in the microscope and using curettes, removed the dense scar and exposed the hemilaminotomy site on the right at L4-L5. I used a high speed air drill to drill a very generous laminotomy and worked through the very dense scar, removing the facet to allow better exposure at the region of the recurrent disc. I did perform partial foraminotomy and visualized the exiting L5 root. There was a large subligamentous disc herniation at L4-L5 on the right and I removed this. I then placed pedicle screws in L4 and L5. Then I performed the anterior operation in the following fashion. The patient was tilted away from al and I made an incision in the right posterior lateral flank directly in line with the L4-L5 disc. I passed the BrainLAB with a sleeve down to dock the posterior aspect of the pedicle of L5. I moved where it comes in contact with the bone and moved superiorly to enter the disc space. At this point, the far lateral nerve root was protected and was lateral and I entered into the disc space. I passed a K-wire followed by a dilator followed by a working channel and through the working channel, I performed a generous discectomy. I then excoriated the cartilaginous endplate and removed the working channel and passed a shield to protect the far lateral nerve and then first placed a trial followed by an interbody fusion cage. Prior to the placement of interbody fusion cage, I did pack allograft bone into the disc space. An 8 x 10 cage was then gently passed from a lateral position into the disk space and tapped, fluoroscopic images looked quite good. I released the cage and compressed on the right side and torqued the assembly. I did obtain films and I was dissatisfied with the L5 screw on the right. It had been in an imperfect position prior to the surgery and I felt that revising its position from its preoperative position would be of some benefit. I then therefore redirected my angle and placed the screw more into the body of L5 on the right without any difficulty. I then again compressed and torqued the assembly, I torqued on the left side. I irrigated copiously with antibiotic solution. Films looked quite good. The cage was in excellent position. I irrigated copiously with antibiotic solution and I obtained excellent hemostasis. I closed the wound in layers with absorbable suture. The skin was closed with 4-0 subcuticular stitch. The operation went very well and the patient was taken to the recovery room in excellent condition. I was quite pleased with the surgery. SIMON PEDROZA MD DR: SCOTT/rashid JOB#: [id number] / [id number] YESI
[2018-04-19] MEDS: PROCHLORPERAZINE 10 MG/2 ML VIAL. IV PRN ×2 (19:39→19:53)
[2018-04-19] MEDS: HYDROmorphone 2 MG/ML VIAL IV PRN ×2 (20:05→20:29)
[2018-04-19] MEDS: METHOCARBAMOL 750 MG TABLET PO SCH ×2 (21:50→23:59)
[2018-04-19] MEDS: POTASSIUM CL 20MEQ D5-0.45NACL 1,000 ML IV SCH (22:02)
[2018-04-19] MEDS: ceFAZolin SODIUM IV Push 1 GM VIAL. IVP SCH (23:46)
[2018-04-19] MEDS: DOCUSATE SODIUM 100 MG CAPSULE. PO SCH (23:59)
[2018-04-19] MEDS: oxyCODONE/APAP 5/325 1 TAB TABLET PO PRN (23:59)
[2018-04-20 00:14] VITALS: BP 125/86
[2018-04-20 02:55] VITALS: BP 112/76
[2018-04-20] MEDS: POTASSIUM CL 20MEQ D5-0.45NACL 1,000 ML IV SCH (04:20)
[2018-04-20] MEDS: ceFAZolin SODIUM IV Push 1 GM VIAL. IVP SCH ×2 (05:54→11:44)
[2018-04-20 06:12] VITALS: BP 124/69
[2018-04-20] MEDS: oxyCODONE/APAP 5/325 1 TAB TABLET PO PRN ×3 (06:12→11:45)
[2018-04-20] MEDS: DOCUSATE SODIUM 100 MG CAPSULE. PO SCH (08:52)
[2018-04-20] MEDS: METHOCARBAMOL 750 MG TABLET PO SCH (08:54)
[2018-04-20] MEDS ORDERED: FAMOTIDINE 20 MG TABLET. PO SCH (09:00)
[2018-04-20] MEDS ORDERED: LOSARTAN POTASSIUM 50 MG TABLET. PO SCH (09:00)
[2018-04-20 11:23] VITALS: BP 148/85
--- NOTE | 2018-04-20 12:06 | PDOC ---
PROGRESS NOTES Subjective Subjective POD #1 legs feel good incisional/ back pain controlled with medication Objective Objective Vital Signs Date Time Temp Pulse Resp B/P (MAP) Pulse Ox O2 Delivery O2 Flow Rate FiO2 04/20/18 11:45 Room Air 04/20/18 11:23 97.5 72 18 148/85 (106) 96 97.5 04/20/18 07:12 2.0 Intake and Output 04/20/18 07:00 Intake Total 4485 ml Output Total 1050 ml Balance 3435 ml Intake Oral 800 ml IV Total 3685 ml Output Urine Total 900 ml Estimated Blood Loss 150 ml # Voids 1 Physical Exam General: Alert, Oriented X3, Cooperative Neuro: Normal speech, Other (strength 5/5 in BLE) Skin: Other (Dressing C,D,I ) Plan Plan of Care May dc home f/u 2 weeks Comment Review of Relevant I have reviewed the following items megan (where applicable) has been applied. Medications Current Medications Ondansetron HCl (Zofran) 4 mg PRN Q6HRS PRN IV NAUSEA/VOMITING; Start 04/19/18 at 07:00; Stop 04/20/18 at 06:59; Status DC Fentanyl Citrate (Fentanyl 2ml Vial) 25 mcg PRN Q5MIN PRN IV MILD PAIN; Start 04/19/18 at 07:00; Stop 04/20/18 at 06:59; Status DC Fentanyl Citrate (Fentanyl 2ml Vial) 50 mcg PRN Q5MIN PRN IV MODERATE TO SEVERE PAIN Last administered on 04/19/18at 20:08; Start 04/19/18 at 07:00; Stop 04/20/18 at 06:59; Status DC Morphine Sulfate (Morphine Sulfate) 1 mg PRN Q10MIN PRN IV SEVERE PAIN Last administered on 04/19/18at 20:11; Start 04/19/18 at 07:00; Stop 04/20/18 at 06:59 ; Status DC Ringer's Solution 1,000 ml @ 30 mls/hr Q24H IV Last administered on 04/19/18at 08:27; Start 04/19/18 at 07:00; Stop 04/19/18 at 18:59; Status DC Lidocaine HCl (Xylocaine-Mpf 1% 2ml Vial) 2 ml PRN 1X PRN ID IV START; Start at 07:00; Stop 04/20/18 at 06:59; Status DC Hydromorphone HCl (Dilaudid) 0.5 mg PRN Q10MIN PRN IV SEV PAIN, Second choice Last administered on 04/19/18 20:29; Start 04/19/18 at 07:00; Stop 04/20/18 at 06:59; Status DC Prochlorperazine Edisylate (Compazine) 5 mg PACU PRN PRN IV NAUSEA, MRX1 Last administered on 04/19/18 19:53; Start 04/19/18 at 07:00; Stop 04/20/18 at 06:59 ; Status DC Bacitracin 82814 unit/Sodium Chloride 1,000 ml @ 1,000 mls/hr 1X ONCE IRR Last administered on 04/19/18 12:38; Start 04/19/18 at 06:00; Stop 04/19/18 at 06:59; Status DC Bupivacaine HCl/ Epinephrine Bitart (Sensorcain-Mpf Epi 0.5%-1:995826) 30 ml 1X ONCE INJ Last administered on 04/19/18 12:38; Start 04/19/18 at 06:00; Stop 04/19/18 at 06:01; Status DC Cefazolin Sodium/ Dextrose 50 ml @ 100 mls/hr 1X ONCE IV Last administered on 04/19/18 12:18; Start 04/19/18 at 06:00; Stop 04/19/18 at 06:29; Status DC Gelatin (Gelfoam Size 100) 1 each STK-MED ONCE .ROUTE Last administered on 12:38; Start 04/19/18 at 06:27; Stop 04/19/18 at 07:27; Status DC Ketorolac Tromethamine (Toradol For Or Only) 60 mg STK-MED ONCE .ROUTE Last administered on 04/19/18 12:38; Start 04/19/18 at 06:27; Stop 04/19/18 at 07:27 ; Status DC Thrombin 20,000 unit STK-MED ONCE TP Last administered on 04/19/18 12:38; Start 04/19/18 at 06:27; Stop 04/19/18 at 07:27; Status DC Propofol 20 ml @ As Directed STK-MED ONCE IV ; Start 04/19/18 at 09:11; Stop at 09:12; Status DC Lidocaine HCl (Lidocaine Pf 2% Vial) 5 ml STK-MED ONCE .ROUTE ; Start 04/19/18 at 09:11; Stop 04/19/18 at 09:12; Status DC Propofol 0 ml @ As Directed STK-MED ONCE IV ; Start 04/19/18 at 09:11; Stop at 09:12; Status DC Fentanyl Citrate (Fentanyl 2ml Vial) 100 mcg STK-MED ONCE .ROUTE ; Start at 09:11; Stop 04/19/18 at 09:12; Status DC Succinylcholine Chloride (Anectine) 200 mg STK-MED ONCE .ROUTE ; Start 04/19/18 at 09:11; Stop 04/19/18 at 09:12; Status DC Rocuronium [place] (Zemuron) 50 mg STK-MED ONCE .ROUTE ; Start 04/19/18 at 09:11 ; Stop 04/19/18 at 09:12; Status DC Remifentanil HCl (Ultiva) 2 mg 1X ONCE IV ; Start 04/19/18 at 10:00; Stop 04/19 at 10:01; Status DC Dexamethasone Sodium Phosphate (Decadron) 20 mg STK-MED ONCE .ROUTE ; Start at 12:05; Stop 04/19/18 at 12:06; Status DC Desflurane (Suprane) 90 ml STK-MED ONCE IH ; Start 04/19/18 at 12:05; Stop 04/19 at 12:06; Status DC Ephedrine Sulfate (ePHEDrine PF IN SALINE SYRINGE) 50 mg STK-MED ONCE IV ; Start 04/19/18 at 12:11; Stop 04/19/18 at 12:12; Status DC Docusate Sodium (Colace) 100 mg PRN BID PRN PO CONSTIPATION; Start 04/19/18 at 13:00 Famotidine (Pepcid) 20 mg DAILY PO Last administered on 04/20/18at 08:52; Start 04/20/18 at 09:00 Losartan Potassium (Cozaar) 50 mg DAILY PO ; Start 04/20/18 at 09:00 Methocarbamol (Robaxin) 750 mg TID PO Last administered on 04/20/18at 08:54; Start 04/19/18 at 14:00 Propofol 50 ml @ As Directed STK-MED ONCE IV ; Start 04/19/18 at 12:51; Stop at 12:52; Status DC Fentanyl Citrate (Fentanyl 2ml Vial) 50 mcg PRN Q2HR PRN IV PAIN; Start at 13:00 Fentanyl Citrate (Fentanyl 2ml Vial) 25 mcg PRN Q2HR PRN IV PAIN; Start at 13:00 Acetaminophen (Tylenol) 650 mg PRN Q6HRS PRN PO MILD PAIN / TEMP; Start at 13:00 Al Hydroxide/Mg Hydroxide (Mylanta Plus Xs) 30 ml PRN Q3HRS PRN PO HEARTBURN / GAS; Start 04/19/18 at 13:00 Calcium Carbonate/ Glycine (Tums) 500 mg PRN Q3HRS PRN PO INDIGESTION Last administered on 04/20/18at 06:06; Start 04/19/18 at 13:00 Diphenhydramine HCl (Benadryl) 25 mg PRN Q6HRS PRN PO ITCHING; Start 04/19/18 at 13:00 Diphenhydramine HCl (Benadryl) 25 mg PRN Q6HRS PRN IV ITCHING; Start 04/19/18 at 13:00 Sodium Chloride (Normal Saline Flush) 3 ml QSHIFT PRN IV AFTER MEDS AND BLOOD DRAWS; Start 04/19/18 at 13:00 Potassium Chloride/Dextrose/ Sod Cl 1,000 ml @ 75 mls/hr [id number] IV Last administered on 04/19/18at 22:02; Start 04/19/18 at 15:00 Oxycodone/ Acetaminophen (Percocet 5/325) 1 tab PRN Q4HRS PRN PO MILD PAIN, 1ST CHOICE; Start 04/19/18 at 13:00 Oxycodone/ Acetaminophen (Percocet 5/325) 2 tab PRN Q4HRS PRN PO MODERATE PAIN , SEVERE PAIN Last administered on 04/20/18at 11:45; Start 04/19/18 at 13:00 Docusate Sodium (Colace) 100 mg BID PO Last administered on 04/20/18at 08:52; Start 04/19/18 at 21:00 Magnesium Hydroxide (Milk Of Magnesia) 2,400 mg PRN Q12HR PRN PO CONSTIPATION; Start 04/19/18 at 13:00 Ondansetron HCl (Zofran) 4 mg PRN Q6HRS PRN IV NAUESA, 1ST CHOICE; Start at 13:00 Cefazolin Sodium 1 gm/Dextrose 50 ml @ 100 mls/hr Q8HRS IV ; Start 04/19/18 at 14:00; Stop 04/20/18 at 06:29; Status UNV Cefazolin Sodium (Ancef) 1 gm Q8H IVP Last administered on 04/20/18at 11:44; Start 04/19/18 at 20:00; Stop 04/20/18 at 12:01 Ondansetron HCl (Zofran) 4 mg STK-MED ONCE .ROUTE ; Start 04/19/18 at 14:18; Stop 04/19/18 at 14:19; Status DC Fentanyl Citrate (Fentanyl 2ml Vial) 100 mcg STK-MED ONCE .ROUTE ; Start at 14:39; Stop 04/19/18 at 14:40; Status DC Propofol 50 ml @ As Directed STK-MED ONCE IV ; Start 04/19/18 at 14:43; Stop at 14:44; Status DC Cefazolin Sodium (Ancef) 1 gm STK-MED ONCE .ROUTE ; Start 04/19/18 at 16:22; Stop 04/19/18 at 16:23; Status DC Propofol 50 ml @ As Directed STK-MED ONCE IV ; Start 04/19/18 at 16:22; Stop at 16:23; Status DC Propofol 50 ml @ As Directed STK-MED ONCE IV ; Start 04/19/18 at 17:06; Stop at 17:07; Status DC Morphine Sulfate (Morphine Sulfate) 4 mg PRN Q10MIN PRN IV PAIN Last administered on 04/19/18at 19:40; Start 04/19/18 at 19:15 Active Scripts Active Methocarbamol 750 Mg Tablet 750 Mg PO TID Hydrocodone-Apap 7.5-325 (Hydrocodone Bit/Acetaminophen) 1 Each Tablet 1 Tab PO PRN Q6HRS PRN Reported Colace (Docusate Sodium) 100 Mg Capsule 1 Cap PO PRN PRN Pepcid (Famotidine) 20 Mg Tablet 20 Mg PO DAILY Losartan Potassium 50 Mg Tablet 50 Mg PO DAILY Vitals/I & O Vital Sign - Last 24 Hours 04/19/18 04/19/18 04/19/18 04/19/18 18:47 18:47 19:01 19:02 Temp 98.5 98.5 Pulse 104 Resp 22 22 20 B/P (MAP) 162/97 Pulse Ox 99 98 O2 Delivery Simple Mask Mask Simple Mask Simple Mask O2 Flow Rate 10 10 10.0 10.0 04/19/18 04/19/18 04/19/18 04/19/18 19:02 19:17 19:24 19:25 Pulse 95 84 Resp 22 20 20 20 B/P (MAP) 155/84 140/74 Pulse Ox 95 90 O2 Delivery Simple Mask Room Air Simple Mask Simple Mask O2 Flow Rate 10 10.0 10.0 04/19/18 04/19/18 04/19/18 04/19/18 19:31 19:40 19:46 20:01 Pulse 87 85 88 Resp 20 20 20 20 B/P (MAP) 140/74 140/90 149/82 Pulse Ox 89 97 90 92 O2 Delivery Room Air Room Air Room Air Nasal Cannula O2 Flow Rate 2 04/19/18 04/19/18 04/19/18 04/19/18 20:05 20:08 20:11 20:16 Pulse 84 Resp 20 20 20 20 B/P (MAP) 146/86 Pulse Ox 99 94 94 89 O2 Delivery Room Air Room Air Room Air Room Air 04/19/18 04/19/18 04/19/18 04/19/18 20:29 20:31 20:40 20:45 Temp 97.0 97.3 97.0 97.3 Pulse 84 83 Resp 20 20 18 B/P (MAP) 145/80 141/84 (103) Pulse Ox 95 94 94 O2 Delivery Nasal Cannula Nasal Cannula Nasal Cannula Nasal Cannula O2 Flow Rate 2.0 2 2.0 2 04/19/18 04/19/18 04/19/18 04/19/18 20:50 21:05 21:05 21:15 Temp 98.0 98.0 Pulse 80 80 Resp 18 18 16 B/P (MAP) 136/82 (100) 134/88 (103) Pulse Ox 94 O2 Delivery Nasal Cannula Nasal Cannula Nasal Cannula Nasal Cannula O2 Flow Rate 2.0 2.0 2.0 2.0 04/19/18 04/19/18 04/19/18 04/19/18 21:20 21:50 22:20 22:50 Pulse 76 77 73 65 Resp 16 18 B/P (MAP) 122/78 (93) 118/70 (86) 116/75 (89) 137/83 (101) Pulse Ox 96 100 97 95 O2 Delivery Nasal Cannula Nasal Cannula Nasal Cannula Nasal Cannula O2 Flow Rate 2.0 2.0 2.0 2.0 04/19/18 04/19/18 04/20/18 04/20/18 23:15 23:59 00:14 01:00 Temp 97.6 97.6 Pulse 76 76 Resp 16 18 18 16 B/P (MAP) 130/83 (99) 125/86 (99) Pulse Ox 95 95 95 O2 Delivery Nasal Cannula Nasal Cannula Nasal Cannula O2 Flow Rate 2.0 2.0 2.0 04/20/18 04/20/18 04/20/18 04/20/18 02:55 06:12 06:12 07:12 Temp 98.2 97.8 98.2 97.8 Pulse 74 76 Resp 18 18 18 B/P (MAP) 112/76 (88) 124/69 (87) Pulse Ox 94 94 96 94 O2 Delivery Nasal Cannula Nasal Cannula Nasal Cannula Nasal Cannula O2 Flow Rate 2.0 2.0 2.0 2.0 04/20/18 04/20/18 04/20/18 04/20/18 08:25 08:54 11:23 11:45 Temp 97.5 97.5 Pulse 72 Resp 18 B/P (MAP) 148/85 (106) Pulse Ox 96 O2 Delivery Room Air Room Air Room Air Room Air Intake and Output 04/19/18 04/19/18 04/20/18 15:00 23:00 07:00 Intake Total 50 ml 3050 ml 1385 ml Output Total 650 ml 400 ml Balance 50 ml 2400 ml 985 ml JERRY PEDROZA MD Apr 20, 2018 12:06
--- NOTE | 2018-04-20 12:08 | DISCH ---
DISCHARGE INSTRUCTIONS Condition on Discharge Condition on Discharge: Stable Activity After Discharge Activity Instructions for Disc: Activity as tolerated, Avoid exertion Other activity instructions: no driving for a week Bathing Instructions: Shower-keep dressing dry Lifting Instructions after Dis: No heavy lifting, No pulling or pushing, Do not lift >10 pounds Diet after Discharge Diet after Discharge: Regular Additional Diet Restrictions: resume home diet Wound Incision Care Wound/Incision Care: Ice to area for comfort Contacting the after DC Call your doctor for: Concerns you may have Follow-Up Follow up with: Dr. Pedroza's nurse in 2 weeks [phone] JERRY PEDROZA MD Apr 20, 2018 12:08
[2018-04-20] MEDS ORDERED: OXYC1TAB7 PO (12:10)
--- NOTE | 2018-04-24 15:09 | PATHOLOGY ---
[facility] Accession Number: [id number] . 01 Material submitted: . LUMBAR DECOMPRESSION AND DISC . 01 Clinical history: . Lumbar herniated disc with radiculopathy back pain,arthrodesis status . 02 Diagnosis: Segments of fibrocartilaginous and fibroadipose tissue and bone, lumbar decompression and disc: - Degenerative changes of fibrocartilaginous tissue. LBQ/04/24/2018 . 02 Comment: There is no evidence of an acute inflammatory process or malignancy. (JPM/db; 04/24/18) . 02 Electronically signed: . Andrew Dexter MD, Pathologist NPI- [id number] . 01 Gross description: . The specimen is received in formalin, labeled "Moran Andres and lumbar decompression and disc", consist of multiple irregular fragments of virgen-white rubbery, fibrous soft tissues, possible admixed with bone measuring 5.0 x 4.0 x 1.0 cm in aggregate. [employer] sections are submitted in A1 after decalcification. ([facility]; 04/20/2018) [facility] . 02 Microscopic: . . . 02 Pathologist provided ICD-10: M51.36 . 02 CPT . 022379, [id number] Performed at: 01 [facility] [address], [place], [place] [id number] MD Gregg Odonnell MD Phone: [phone] Performed at: 02 [facility] [address] [place], [place] [id number] MD Andrew Dexter MD Phone: [phone]
== END 2018-04-20 13:50 | disposition home or self-care (01) ==
LOC: SURG 07:52 → EDSTATUS 10:30 → 4 SOUTHEST 18:40
PROVIDERS: ADMIT Neurological Surgery; ATTEND Neurological Surgery
DX: M51.16 Intervertebral disc disorders with radiculopathy, lumbar region (principal); Z93.3 Colostomy status; Z98.1 Arthrodesis status
CPT/HCPCS: 0165T; 20938; 22558; 22585; 22862; 36415; 63042; 63044; 72131; 76000; 86850; 86900; 86901; 88304; 88311; 96374; 96376; 97162; C1713; G0378; G0379; G8978; G8979; J0330; J0690; J0780; J1100; J1170; J1885; J2001; J2270; J2405; J2704; J3010; J3490; J7030; J7120; A7015

== ENCOUNTER → 2018-05-18 | Outpatient (CLI) | payer OTHER ==
[2018-04-20 11:23] VITALS: BP 148/85
[~2018-05-18] MED LIST changes: -BACITRACIN 50,000 UNIT in IV NORMAL SALINE 1000ML BAG 1,000 ML IRR ONE; -BUPIVAC MPF-EPI 0.5%-1:200000 30 ML VIAL. INJ ONE; -GELATIN SPONGE SIZE 100. ONE; -IV RINGERS,LACTATED 1000ML 1,000 ML IV SCH; -KETOROLAC 60 MG/2 ML INJ FOR OR. ONE; -LIDOCAINE 1% PF 2 ML VIAL. ID PRN; -ONDANSETRON PF 4 MG/2 ML VIAL. IV PRN; +OXYC1TAB7 PO; -THROMBIN TOPICAL 20,000 UNIT SPRAY.SYRN KIT TP ONE; -fentaNYL PF VIAL 100 MCG/2 ML VIAL IV PRN
--- NOTE | 2018-05-18 16:28 | RAD ---
CT of the lumbar spine without contrast, 05/18/2018: HISTORY: Postop pain Noncontrast scans were obtained and compared to a study from 04/19/2018. There is unchanged fusion of the L5-S1 disc space. L5-S1 fixation rods evident on the previous study have been removed. The right S1 pedicle screw has been removed while the left S1 pedicle screw remains in place. The left L5 pedicle screw remains in place and now is attached to a posterior fixation april attached to a new left L4 pedicle screw. The right L4 pedicle screw has been replaced and is now attached to a right posterior fixation april which is attached to a new L4 fixation april. There are posterolateral calcific densities in this region compatible with bone graft. A new radiopaque disc spacer present at L4-5. Artifacts related to the internal fixation devices degrade image quality in the lower lumbar region. There is a laminectomy defect at L5. The central spinal canal and neural foramina at L5-S1 are not stenotic. There is laminectomy defect on the right at L4. There is a persistent abnormal density in the right neural foramen at L4-5 obscuring the normal epidural fat and the nerve root. There is mild central spinal stenosis at L4-5. There is a new fracture of the right transverse process at L4. At L3-4 there is moderate broad-based posterior disc protrusion. There is mild posterior ligamentous thickening related to facet joint arthropathy. There is mild associated central spinal stenosis at this level, unchanged since 04/19/2018. At L1-2 and L2-3 there is mild posterior disc bulging and marginal spurring. No significant central spinal or foraminal stenosis is evident. There is streaky increased density in the soft tissues posteriorly near the midline compatible with postsurgical change. No discrete fluid collection is seen to suggest abscess. IMPRESSION: 1. Revised and extended lower lumbar posterior spinal fusion and instrumentation as described above. 2. New right L4 transverse process fracture. 3. Persistent right foraminal encroachment and spinal stenosis at L4-5. 4. Unchanged mild degenerative disc disease in the upper lumbar spine. PQRS Compliance Statement: One or more of the following individualized dose reduction techniques were utilized for this examination: 1. Automated exposure control 2. Adjustment of the mA and/or kV according to patient size 3. Use of iterative reconstruction technique Electronically signed by: Kishore Cherry MD (05/18/2018 4:24 PM) [facility]
== END | disposition home or self-care (01) ==
LOC: CT 14:47
PROVIDERS: ATTEND Neurological Surgery
DX: S32.048A Other fracture of fourth lumbar vertebra, initial encounter for closed fracture (principal); M51.36 Other intervertebral disc degeneration, lumbar region; M48.061 Spinal stenosis, lumbar region without neurogenic claudication; M51.26 Other intervertebral disc displacement, lumbar region; I10 Essential (primary) hypertension; Z87.39 Personal history of other diseases of the musculoskeletal system and connective tissue; Z86.69 Personal history of other diseases of the nervous system and sense organs; Z87.891 Personal history of nicotine dependence; X58.XXXA Exposure to other specified factors, initial encounter; Y93.89 Activity, other specified; Y92.89 Other specified places as the place of occurrence of the external cause; Y99.8 Other external cause status
CPT/HCPCS: 72131

== ENCOUNTER → 2018-06-04 | Outpatient (CLI) | payer OTHER ==
[~2018-06-04] MED LIST changes: +GADOBUTROL 7.5 MMOL/7.5 ML VIAL IV ONE
--- NOTE | 2018-06-04 17:35 | KCIC ---
MRI of the lumbar spine without and with contrast 06/04/2018 CLINICAL HISTORY: Low back pain which radiates down the right leg. Previous lumbar spine surgeries. TECHNIQUE: Unenhanced T1-weighted and T2-weighted sagittal and axial and inversion recovery sagittal images of the lumbar spine were obtained. After the intravenous administration of 7 cc of Gadavist, enhanced T1-weighted sagittal and axial images of the lumbar spine were obtained. FINDINGS: Comparison study is dated 03/28/2018. Very mild S-shaped curvature of the thoracolumbar spine is seen. The patient is post fusion using pedicle screws and stabilizing rods and bone graft material at L4-5 and L5-S1. Degenerative signal changes are seen involving all of the disks of the lumbar spine. Degenerative signal changes are seen within the marrow surrounding these discs. Mild anterolisthesis of L4 in relation to L5 is noted. Loss of height of the L2-3 disc is seen. The conus medullaris is normal morphology, position, and signal characteristics. At the L1-2 disc space there is a mild generalized disc bulge. Degenerative changes are seen involving the facet joints bilaterally. These findings do not result in significant central spinal canal or neural foraminal stenosis. At the L2-3 disc space there is a mild generalized disc bulge. This is eccentric to the left. Degenerative changes are seen involving the facet joints bilaterally. These findings do not result in significant central spinal canal or neural foraminal stenosis. At the L3-4 disc space there is a mild to moderate generalized disc bulge. This is eccentric to the left. Degenerative changes are seen involving the facet joints bilaterally. There is mild to moderate ligamentum flavum hypertrophy bilaterally. There is prominence of the posterior epidural fat. These findings when combined result in mild to moderate central spinal canal stenosis. No neural foraminal stenosis is seen. At the L4-5 disc space there is a mild generalized disc bulge. The patient is post right hemilaminectomy. The right paracentral/lateral disc herniation seen on the previous examination has been resected. Enhancement consistent with epidural scarring is seen along the right lateral aspect of the thecal sac. A 3.8 cm fluid collection which likely represents a seroma seen in this region. Degenerative changes are seen involving the facet joints bilaterally. These findings when combined do not result in significant central spinal canal stenosis. Moderate right neural foraminal stenosis is seen. At the L5-S1 disc space, the patient is post laminectomy. Degenerative changes are seen involving the facet joints bilaterally. These findings do not result in significant central spinal canal or neural foraminal stenosis. IMPRESSION: 1. Postsurgical changes are seen as outlined above. The right paracentral/lateral focal disc herniation seen on the previous examination at L4-5 has been resected. 2. The changes of degenerative disc disease are seen involving lumbar spine. These findings result in mild to moderate central spinal canal stenosis at L3-4. Moderate right neural foraminal stenosis is seen at L4-5. Electronically signed by: Viral Jeffrey MD (06/04/2018 5:32 PM) [facility]
== END | disposition home or self-care (01) ==
LOC: KCIC MRI 15:15
PROVIDERS: ATTEND Neurological Surgery
DX: M51.16 Intervertebral disc disorders with radiculopathy, lumbar region (principal); M48.061 Spinal stenosis, lumbar region without neurogenic claudication; I10 Essential (primary) hypertension; Z98.1 Arthrodesis status; Z87.891 Personal history of nicotine dependence
CPT/HCPCS: 72158; A9585

== ENCOUNTER → 2018-06-13 | Outpatient (CLI) | payer OTHER ==
[~2018-06-13] MED LIST changes: -GADOBUTROL 7.5 MMOL/7.5 ML VIAL IV ONE; +IOHEXOL 180 MG/ML 10 ML VIAL. ONE; +LIDOCAINE 1% PF 2 ML VIAL. ONE; +methylPREDNISolone ACETATE 40 MG/ML VIAL. ONE; +methylPREDNISolone ACETATE 80 MG/ML VIAL. ONE
--- NOTE | 2018-06-13 22:00 | PAIN ---
DATE OF SERVICE: 06/13/2018 Progress note for pain clinic DIAGNOSES: 1. Lumbar radiculopathy with lumbar degenerative disk disease, post-lumbar laminectomy syndrome. 2. Cervical radiculopathy with cervical post-laminectomy syndrome and cervical degenerative disk disease. HISTORY OF PRESENT ILLNESS: The patient is a 57-year-old male who returns for followup status post lumbar and cervical epidural steroid injections in the past, last seen on 10/09/2017, the patient had cervical epidural steroid injection. He did very well with it. The patient reports he has had surgery now with anterior cervical diskectomy and fusion in December 2017 and then a lumbar redo with fusion in March 2018 with L4-L5 lateral and posterior instrumentation and fusion. The patient reports he was doing fairly well after the procedure, but his right leg has significant pain radiating to the right posterior gluteus, posterolateral thigh, lateral anterior thigh, anterior medial thigh into the foot involving the toes, mostly the big toe, which feels like it is cut. The patient reports it is a 9 on a scale of 10 at its worst, 7 on average, 6 at its least. Describes it as aching, sharp, shooting, cramping, tingling, becoming more constant with activity, worse with walking, standing, waking him up from sleep occasionally and is better with lying down generally and sitting. The patient reports no loss of motor function, no new bowel or bladder incontinence. He was originally increasing his activity, distance walking, work and household activities, but now has been significantly limiting him in the right leg only as well as in the low back. PHYSICAL EXAMINATION: VITAL SIGNS: The patient's blood pressure is 145/100, pulse 67, respirations 18, temperature 97.8 degrees Fahrenheit. Height is 5 feet 9 inches, weighs 178 pounds. GENERAL: The patient is awake, alert, oriented, appropriate, very pleasant demeanor. HEENT: Head is normocephalic, atraumatic. Extraocular muscles are intact and symmetrical. Oral cavity: Mucous membranes moist and pink. Dentition is intact. NECK: Shows anterior throat supple without palpable lymphadenopathy noted. Well-healed surgical scars noted on the right. Neck shows full rotational motion of the cervical spine without difficulty or pain reported. CHEST: Shows normal on inspection. Breath sounds are clear to auscultation bilaterally. HEART: Shows S1, S2 clear. No murmurs auscultated. ABDOMEN: Soft, nontender, nondistended. No palpable organomegaly is noted. No rebound or guarding demonstrated. BACK: Shows spine grossly in the midline. Normal appearing thoracic kyphosis and some flattening of lumbar lordotic curvature. A well-healed midline surgical scar is again appreciated. Lumbar paraspinous muscle shows symmetrical on inspection, on palpation shows some moderate tenderness, but only diffusely in the middle and lower distribution of paraspinous muscles bilaterally without radiation, without trigger points. No tenderness over the sacrum or sacroiliac regions. The patient has good rotation of the lumbar spine both laterally as well as extension and flexion without significant increase in pain. EXTREMITIES: Lower extremities show deep tendon reflexes at 1+ in the patellar and tendo calcaneus tendons. Motor exam is strong with 5/5 dorsiflexion, extension, quadriceps and hamstring flexion is intact and strong as well and 5/5 and equal. Peripheral pulses are 1+ posterior tibia. No peripheral edema is noted bilaterally. Options were discussed with the patient. The patient's old chart was reviewed as his current medication regimen updated. Current review of systems updated today as well. We will proceed with a caudal approach epidural steroid injection today with fluoroscopic guidance. Risks were again discussed including, but not limited to, bleeding, infection, possibility of epidural hematoma and subsequent neurological compromise, dural puncture, headaches, spinal cord and/or nerve damage, side effects of steroid medication and poor results regarding pain control. The patient understands and wished to proceed. The patient to return to clinic in approximately 2 weeks for followup, was counseled as to his return appointment, activity level and side effects to be aware of. DIAGNOSES: Lumbar radiculopathy with lumbar degenerative disk disease and lumbar post-laminectomy syndrome. PROCEDURE: Caudal approach epidural steroid injection using C-arm fluoroscopic guidance under sterile prep and drape using local anesthetic. MEDICATIONS INJECTED: A total of 120 mg Depo-Medrol plus 10 mL of preservative-free normal saline and 2 mL of Isovue for contrast. CONDITION AT DISCHARGE: Stable. The patient tolerated the procedure well, had no complications. MICA RIOS MD DR: MARIO/rashid JOB#: [id number] / [id number]
== END | disposition home or self-care (01) ==
LOC: PNCL 10:22
PROVIDERS: ATTEND Anesthesiology
DX: M51.16 Intervertebral disc disorders with radiculopathy, lumbar region (principal); M96.1 Postlaminectomy syndrome, not elsewhere classified; M50.10 Cervical disc disorder with radiculopathy, unspecified cervical region
CPT/HCPCS: 62323; J1030; J1040; Q9965

== ENCOUNTER → 2018-07-02 | Outpatient (CLI) | payer OTHER ==
--- NOTE | 2018-07-02 21:33 | PAIN ---
DATE OF SERVICE: 07/02/2018 PROGRESS NOTE FOR PAIN CLINIC DIAGNOSES: Lumbar radiculopathy with lumbar degenerative disk disease and post-lumbar laminectomy syndrome. HISTORY OF PRESENT ILLNESS: The patient is a 57-year-old male who returns for followup status post caudal epidural steroid injection x 1. The patient reports only minimal decrease in pain for a few days after the injection. The pain returned fairly significantly in the low back and significantly in the right leg. The patient reports it is in the lateral aspect of the thigh, posterior thigh, posterior calf, posterior foot, lateral foot, tingling, burning, cramping, sharp, shooting, becoming more constant and back to baseline after a few days. The patient reports 8 on a scale of 10 at its worst, 6 on average, 4 at its least and is a 6 today. The patient reports no new motor or sensory deficits, no new bowel or bladder incontinence or other complaints, but still significant pain in the right leg as described. PHYSICAL EXAMINATION: VITAL SIGNS: The patient's blood pressure is 147/98, pulse 79, respirations 16, temperature 98.1 degrees Fahrenheit, height is 5 feet 9 inches, weight is 178 pounds. GENERAL: The patient is awake, alert, oriented, appropriate, very pleasant demeanor. HEENT: Head is normocephalic, atraumatic. Extraocular movements are intact and symmetrical. Oral cavity, mucous membranes are moist and pink. Dentition is intact. NECK: Shows anterior throat supple without palpable lymphadenopathy noted. Swallow reflex symmetrical. CHEST: Shows normal with inspection. Breath sounds clear to auscultation bilaterally. HEART: Shows S1, S2 clear. No murmurs auscultated. ABDOMEN: Soft, nontender, nondistended. No palpable organomegaly is noted. No rebound or guarding demonstrated. BACK: Shows spine grossly in the midline, some flattening of lumbar lordotic curvature noted with a well-healed surgical scar. Lumbar paraspinous muscle shows firm, symmetrical, but with palpation shows some moderate tenderness diffusely throughout the upper, middle and lower distribution of paraspinous muscles bilaterally. No peripheral radiation is noted, however. EXTREMITIES: The patient's lower extremities show deep tendon reflexes 1+/4 in the patellar and tendo calcaneus tendons are equal. Motor exam is strong with 5/5 dorsiflexion and extension. Quadriceps and hamstring flexion and symmetrical. Peripheral pulses are 1+ posterior tibia. No peripheral edema is noted. Options were discussed with the patient. The patient's old chart was reviewed as was his current medication regimen updated. Current review of systems updated today as well. We will proceed with a second in the series of lumbar epidural steroid injection today with fluoroscopic guidance. Risks were discussed including but not limited to bleeding, infection, possibility of epidural hematoma, subsequent neurological compromise, dural puncture, headaches, spinal cord and/or nerve damage, side effects of steroid medication and poor results regarding pain control. The patient understands and wished to proceed. The patient will return to the clinic in approximately 2 weeks for followup. She was counseled on return appointment, activity level and side effects to be aware of. DIAGNOSES: Lumbar radiculopathy with lumbar degenerative disk disease and post-lumbar laminectomy syndrome. PROCEDURE: Lumbar epidural steroid injection, translaminar approach at L5-S1 level using C-arm fluoroscopic guidance under sterile prep and drape using local anesthetic. MEDICATION INJECTED: A total of 120 mg Depo-Medrol plus 10 mL of preservative-free normal saline and 2 mL of Isovue for contrast. CONDITION AT DISCHARGE: Stable. The patient tolerated the procedure well, had no complications. MICA RIOS MD DR: MARIO/rashid JOB#: [id number] / [id number]
== END | disposition home or self-care (01) ==
LOC: PNCL 10:22
PROVIDERS: ATTEND Anesthesiology
DX: M54.16 Radiculopathy, lumbar region (principal); M51.36 Other intervertebral disc degeneration, lumbar region; M96.1 Postlaminectomy syndrome, not elsewhere classified; Z79.899 Other long term (current) drug therapy; Z98.890 Other specified postprocedural states
CPT/HCPCS: 62323; J1030; J1040; Q9965

== ENCOUNTER → 2018-07-16 | Outpatient (CLI) | payer OTHER ==
[~2018-07-16] MED LIST changes: +HYDR-3165 PO; -HYDR-965 PO
--- NOTE | 2018-07-16 11:20 | PAIN ---
DATE OF SERVICE: 07/16/2018 PROGRESS NOTE FOR PAIN CLINIC DIAGNOSES: Lumbar radiculopathy with lumbar degenerative disk disease and post-lumbar laminectomy syndrome. HISTORY OF PRESENT ILLNESS: The patient is a 57-year-old male who returns for followup status post lumbar epidural steroid injection x 2, caudal and translaminar. The patient reports only about a day or two of decreasing pain after the last injection, still pain in the low back, right lower extremity, mostly in the lateral thigh, lateral anterior thigh, posterior thigh, posterior calf into the ankle and foot; sharp, shooting, burning, cramping, stabbing, constant, becoming more noticeable with activity but essentially stable. The patient reports it is a 7 on a scale of 10 at its worst, 6 on average, 5 at its least and is a 6 today. The patient reports no new motor or sensory deficits. Occasionally, wakes him from sleep but not most nights. The patient reports it is worse with walking, standing, changing positions or sitting for prolonged. There is still taking 1 or 2 Percocet every evening, which does decrease the pain significantly and allows him get through the evening as well as through the night. The patient reports no new motor or sensory deficits. No new bowel or bladder incontinence or other complaints. PHYSICAL EXAMINATION: VITAL SIGNS: The patient's blood pressure is 140/100, pulse is 81, respirations are 16, temperature is 98.2 degrees Fahrenheit. Height is 5 feet 9 inches and weight is 176 pounds. GENERAL: The patient is awake, alert, oriented, appropriate and very pleasant demeanor. HEENT: Head shows normocephalic and atraumatic. Extraocular movements are intact and symmetrical. Oral cavity: Mucous membranes moist and pink. Dentition is intact. NECK: Shows anterior throat supple without palpable lymphadenopathy noted. Swallow reflex symmetrical. CHEST: Shows normal on inspection. Breath sounds clear to auscultation bilaterally. HEART: Shows S1 and S2 clear. No murmurs auscultated. ABDOMEN: Soft, nontender and nondistended. No palpable organomegaly is noted. No rebound or guarding demonstrated. BACK: Shows spine grossly in the midline. Normal appearing thoracic kyphosis and flattening of lumbar lordotic curvature. Well-healed surgical scar, which is extensive throughout the lumbar distribution into the sacral distribution as well. Paraspinous musculature shows symmetrical on inspection, on palpation shows some moderate tenderness but only diffusely bilaterally in the middle and lower distribution of the paraspinous muscles. The patient has good rotational motion without exacerbation of pain. No tenderness over the sacrum or sacroiliac regions. EXTREMITIES: Lower extremities show deep tendon reflexes at 1+ in the patella and tendo-calcaneus tendons. Motor exam is strong with 5/5 dorsiflexion, extension, quadriceps and hamstring flexion and equal. Peripheral pulses are 1+ posterior tibia. No peripheral edema is noted bilaterally. Options were discussed with the patient. The patient's old chart was reviewed as well as his current medication regimen updated. Current review of systems updated today as well. We will proceed with a third in the series of lumbar epidural steroid injection today with fluoroscopic guidance. Risks were again discussed including, but not limited to bleeding, infection, possibility of epidural hematoma, subsequent neurological compromise, dural puncture headache, spinal cord and/or nerve damage, side effects of steroid medication and poor results regarding pain control. The patient understands and wished to proceed. The patient will return to the clinic in approximately 2 weeks for followup, was counseled as to return appointment, activity level and side effects to be aware of. DIAGNOSES: Lumbar radiculopathy with lumbar degenerative disk disease and post-lumbar laminectomy syndrome. PROCEDURE: Lumbar epidural steroid injection, translaminar approach, L5-S1 level using C-arm fluoroscopic guidance under sterile prep and drape using local anesthetic. MEDICATION INJECTED: A total of 120 mg Depo-Medrol plus 10 mL of preservative-free normal saline and 2 mL of Isovue for contrast. CONDITION AT DISCHARGE: Stable. The patient tolerated the procedure well and had no complications. MICA RIOS MD DR: MARIO/rashid JOB#: [id number] / [id number]
== END | disposition home or self-care (01) ==
LOC: PNCL 09:16
PROVIDERS: ATTEND Anesthesiology
DX: M51.16 Intervertebral disc disorders with radiculopathy, lumbar region (principal); M96.1 Postlaminectomy syndrome, not elsewhere classified
CPT/HCPCS: 62323; J1030; J1040; Q9965

== ENCOUNTER → 2018-08-08 | Outpatient (CLI) | payer OTHER ==
[~2018-08-08] MED LIST changes: -HYDR-2762 PO; +HYDR-2765 PO; -IOHEXOL 180 MG/ML 10 ML VIAL. ONE; -LIDOCAINE 1% PF 2 ML VIAL. ONE; +LOSA-73 PO; -LOSA50TA7 PO; -OXYC-323 PO; -OXYC-328 PO; +OXYC1TAB15 PO; +OXYC1TAB22 PO; -methylPREDNISolone ACETATE 40 MG/ML VIAL. ONE; -methylPREDNISolone ACETATE 80 MG/ML VIAL. ONE
[2018-08-08 09:13] LABS: CALCIUM 9.5 mg/dL (8.5-10.1); CREATININE 1.2 mg/dL (0.7-1.3); GFR 62.2; POTASSIUM 4.5 mmol/L (3.5-5.1)
[2018-08-08 09:18] LABS: CHOLESTEROL/HDL RATIO 5.3
== END | disposition home or self-care (01) ==
LOC: LAB 08:29
PROVIDERS: ATTEND Family Medicine
DX: I10 Essential (primary) hypertension (principal); E78.5 Hyperlipidemia, unspecified
CPT/HCPCS: 36415; 80048; 80061

== ENCOUNTER → 2019-08-23 | Outpatient (CLI) | payer OTHER ==
[2019-08-23 08:43] LABS: CALCIUM 9.2 mg/dL (8.5-10.1); CREATININE 1.2 mg/dL (0.7-1.3); POTASSIUM 4.2 mmol/L (3.5-5.1)
[2019-08-23 08:47] LABS: CHOLESTEROL/HDL RATIO 6.7
== END | disposition home or self-care (01) ==
LOC: LAB 07:30
PROVIDERS: ATTEND Family Medicine
DX: I10 Essential (primary) hypertension (principal)
CPT/HCPCS: 36415; 80048; 80061

== ENCOUNTER → 2020-08-27 | Outpatient (CLI) | payer OTHER ==
[2020-08-27 10:17] LABS: ANION GAP 7 (6-14); BLOOD UREA NITROGEN 16 mg/dL (8-26); C-REACTIVE PROTEIN < 0.5 mg/L (0-3.3); CALCIUM 9.2 mg/dL (8.5-10.1); CARBON DIOXIDE 28 mmol/L (21-32); CHLORIDE 105 mmol/L (98-107); CREATININE 0.9 mg/dL (0.7-1.3); GFR 86.1; GLUCOSE 135 mg/dL (70-99); POTASSIUM 4.9 mmol/L (3.5-5.1); SODIUM 140 mmol/L (136-145); URIC ACID 4.4 mg/dL (3.5-7.2)
[2020-08-27 19:09] LABS: RHEUMATOID FACTOR 18.1 IU/mL (0.0-13.9)
[2020-08-31 17:09] LABS: ANA INTERP Negative (.)
== END ==
LOC: LAB 09:36
PROVIDERS: ATTEND Family Medicine
DX: I10 Essential (primary) hypertension (principal); M25.50 Pain in unspecified joint
CPT/HCPCS: 36415; 80048; 84550; 86038; 86140; 86431

== ENCOUNTER → 2021-04-01 | Outpatient (CLI) | payer OTHER ==
[~2021-04-01] MED LIST changes: +LISI10TA16 PO; -LISI10TA2 PO; +METH-562 PO; -METH750T2 PO
== END ==
LOC: LAB 06:57
PROVIDERS: ATTEND Family Medicine
DX: R53.82 Chronic fatigue, unspecified (principal)
CPT/HCPCS: 36415; 84443

== ENCOUNTER → 2021-04-23 | Day surgery (SDC) | payer OTHER ==
[~2021-04-23] VITALS: Ht 175.3 cm; Wt 78.0 kg
[~2021-04-23] MED LIST changes: +HYDROmorphone 2 MG/ML VIAL IVP PRN; +IV RINGERS,LACTATED 1000ML 1,000 ML IV SCH; +LIDOCAINE 2% PF 5 ML VIAL. ONE; +MORPHINE SULFATE 2 MG/ML INJ. IVP PRN; +PROCHLORPERAZINE 10 MG/2 ML VIAL. IVP PRN; +PROPOFOL 10 MG/ML (20ML) VIAL. IV ONE; +fentaNYL PF VIAL 100 MCG/2 ML VIAL IVP PRN
[2021-04-23 07:58] VITALS: BP 151/87
[2021-04-23 09:25] VITALS: BP 123/77
--- NOTE | 2021-04-26 17:06 | PATHOLOGY ---
[facility] Accession Number: [id number] . 01 Material submitted: . colon - RANDOM COLON BIOPSY . 01 Clinical history: . DIARRHEA, RECTAL BLEEDING COLONOSCOPY . 02 Diagnosis: Colonic mucosa, random colon biopsies: - No significant pathologic abnormalities. (JPM:pit; 04/26/2021) P 04/26/2021 1115 Local . 02 Comment: Sections of the random colon biopsy reveal multiple segments of colonic mucosa containing a few mucosal-associated lymphoid aggregates. There is no evidence of a chronic destructive colitis, lymphocytic colitis, or collagenous colitis. (JPM:vp of [employer]; 04/26/2021) . 02 Electronically signed: . Andrew Dexter MD, Pathologist NPI- [id number] . 01 Gross description: . The specimen is received in formalin, labeled "Andres Moran, random colon BX". Received are multiple segments of pale mantilla tissue ranging in size from 0.2 to 0.5 cm in maximum dimensions. The specimen is submitted entirely in cassette A1.([facility]; 04/23/2021) [facility] 04/23/2021 1743 Local . 02 Pathologist provided ICD-10: R19.7, K62.5 . 02 CPT . 214328 Specimen Comment: A courtesy copy of this report has been sent to [phone] Specimen Comment: Report sent to DR SCHUMACHER Performed at: 01 [facility] [address], [place] [id number] MD Azael Watkins MD Phone: [phone] Performed at: 02 [facility] [address] [place], [place] [id number] MD Andrew Dexter MD Phone: [phone]
== END | disposition home or self-care (01) ==
LOC: ENDOS 07:29
PROVIDERS: ATTEND Internal Medicine Gastroenterology
DX: R19.7 Diarrhea, unspecified (principal); K64.0 First degree hemorrhoids; K62.5 Hemorrhage of anus and rectum; K63.89 Other specified diseases of intestine; I10 Essential (primary) hypertension; E66.9 Obesity, unspecified; K21.9 Gastro-esophageal reflux disease without esophagitis; F41.9 Anxiety disorder, unspecified; Z87.891 Personal history of nicotine dependence; Z79.899 Other long term (current) drug therapy; Z98.890 Other specified postprocedural states; Z72.89 Other problems related to lifestyle
CPT/HCPCS: 45380; J2704; 88305

== ENCOUNTER → 2021-06-14 | Outpatient (CLI) | payer OTHER ==
[2021-04-23 09:25] VITALS: BP 123/77
[~2021-06-14] MED LIST changes: -HYDROmorphone 2 MG/ML VIAL IVP PRN; -IV RINGERS,LACTATED 1000ML 1,000 ML IV SCH; -LIDOCAINE 2% PF 5 ML VIAL. ONE; -MORPHINE SULFATE 2 MG/ML INJ. IVP PRN; -PROCHLORPERAZINE 10 MG/2 ML VIAL. IVP PRN; -PROPOFOL 10 MG/ML (20ML) VIAL. IV ONE; -fentaNYL PF VIAL 100 MCG/2 ML VIAL IVP PRN
[2021-06-14 09:18] LABS: BASO # 0.1 x10^3/uL (0.0-0.2); BASO % 1 % (0-3); EOS # 0.3 x10^3/uL (0.0-0.7); EOS % 4 % (0-3); HEMATOCRIT 43.9 % (39.0-53.0); LYMPH # 1.7 x10^3/uL (1.0-4.8); LYMPH % 25 % (24-48); MEAN CORPUSCULAR HEMOGLOBIN 34 pg (25-35); MEAN CORPUSCULAR HGB CONC 34 g/dL (31-37); MEAN CORPUSCULAR VOLUME 98 fL (79-100); MONO # 0.7 x10^3/uL (0.0-1.1); MONO % 10 % (0-9); NEUT # 4.1 x10^3/uL (1.8-7.7); NEUT % 60 % (31-73); PLATELET COUNT 152 x10^3/uL (140-400); RED BLOOD COUNT 4.47 x10^6/uL (4.30-5.70); RED CELL DISTRIBUTION WIDTH 13.4 % (11.5-14.5); WHITE BLOOD COUNT 6.9 x10^3/uL (4.0-11.0)
[2021-06-14 10:17] LABS: CHOLESTEROL/HDL RATIO 5.7
[2021-06-16 15:16] LABS: GLIA IGA 3 units (0-19); GLIA IGG 1 units (0-19); TRANSGLUTAMINASE IGA AB <2 U/mL (0-3); TRANSGLUTAMINASE IGG AB <2 U/mL (0-5)
== END ==
LOC: LAB 08:37
PROVIDERS: ATTEND Family Medicine
DX: K52.9 Noninfective gastroenteritis and colitis, unspecified (principal); E78.5 Hyperlipidemia, unspecified
CPT/HCPCS: 36415; 80061; 83516; 85025; 85651

== ENCOUNTER → 2022-01-06 | Outpatient (CLI) | payer OTHER ==
[2021-04-23 09:25] VITALS: BP 123/77
--- NOTE | 2022-01-06 10:09 | RAD ---
EXAM: Lumbar spine, 3 views. HISTORY: Pain. COMPARISON: 05/18/2018. FINDINGS: 3 views of the lumbar spine are obtained. There is instrumented posterior spinal fusion at L4-S1. The instrumentation consists of paired transverse screws at L4 and L5 and a left-sided screw a t S1. The L4 and L5 screws are bridged by vertical rods. There are disc space fusion devices at L4-L5 and L5-S1. There is mild retrolisthesis of L2 on L3 and L3 on L4. There is multilevel endplate remodeling and di sc space narrowing, primarily at L2-L3. There are multiple endplate Schmorl's nodes. There is chronic mild degenerative or developmental anterior wedging of T12 and L1. There is levoscoliosis. There are radiodense foreign bodies overlying the left hemipelvis. IMPRESSION: 1. Instrumented fusion at L4-S1. There is no evidence of instrumentation loosening. 2. Multilevel degenerative change, primarily at L2-L3. Electronically signed by: Jyoti Han MD (01/06/2022 10:06 AM) [id number]
== END ==
LOC: RAD 09:29
PROVIDERS: ATTEND Family Medicine
DX: Z02.71 Encounter for disability determination (principal); M47.816 Spondylosis without myelopathy or radiculopathy, lumbar region; M48.061 Spinal stenosis, lumbar region without neurogenic claudication; M41.86 Other forms of scoliosis, lumbar region; M51.46 Schmorl's nodes, lumbar region; M43.16 Spondylolisthesis, lumbar region; Z98.1 Arthrodesis status
CPT/HCPCS: 72100